=== PATIENT | female | born 1950 | race Caucasian/White ===

== ENCOUNTER 2021-10-20 10:32 | Emergency (ER) | payer MEDICARE, BC, SELFPAY ==
[2021-10-20 11:07] VITALS: BP 125/79; PULSE 56; RESP 16; TEMP 36.6; O2SAT 100; BMI 16.1
--- NOTE | 2021-10-20 12:18 | ED.FALL ---
HPI - Fall General Date Seen: 10/20/21 Chief Complaint: Fall/Minor Trauma Stated Complaint: Fell last night, cut right arm Time Seen by Provider: 10/20/21 11:50 Source: patient, family and RN notes reviewed Mode of arrival: ambulatory Limitations: no limitations History of Present Illness HPI Narrative: Patient is coming in at the urging of family members with an injury to her right forearm. She was in the dark last night and fell on a box. She tripped in the dark. She noted that the lesion with his bleeding again today on her forearm. She is unsure of her tetanus. She did not hit her head, no loss of consciousness, no neck or back pain, no difficulty breathing, no chest pain, no abdominal symptoms. Does not hurt to use her arms or walk on her legs. She just had a skin injury to the forearm. complaint: fall Onset (ago): day(s) Fall from: standing Fall witnessed: no Place fall occurred: home Loss of consciousness: No Prolonged down time: no Symptoms prior to fall: none Context: tripped/slipped (In the dark) Related Data Home Medications Medication Instructions Recorded Confirmed No Known Home Medications 10/20/21 10/20/21 Allergies Allergy/AdvReac Type Severity Reaction Status Date / Time Penicillins Allergy Mild Unknown Verified 10/20/21 11:15 prednisone Allergy Mild Unknown Verified 10/20/21 11:15 Sulfa (Sulfonamide Allergy Mild Unknown Verified 10/20/21 11:15 Antibiotics) Review of Systems Narrative: As per HPI, note nursing staff found her tetanus to be up to date with last dose in 2016 [facility] Social History Smoking Status: Former smoker Do you use any of these nicotine containing products: None Second hand tobacco smoke exposure: Yes How often do you have a drink containing alcohol: never How often do you have six or more drinks on one occasion: Never AUDIT-C Alcohol total score: 0 Non-prescribed substance use: denies use service: No Exam Const: Vital Signs, click to edit/add: Vital Signs - 24 hr 10/20/21 11:07 Temperature 97.8 F Pulse Rate [Right Pulse Oximeter] 56 L Respiratory Rate 16 Blood Pressure [Le ft Upper Arm] 125/79 Pulse Oximetry 100 Documenting provider has reviewed patient's vital signs: yes Common normals: no apparent distress, average body habitus, oriented x3, no limitations, healthy appearing and alert HENMT: Common normals: normocephalic, head/scalp atraumatic and hearing grossly normal bilaterally Head and scalp: normocephalic and atraumatic Eye: Common normals: PERRL, EOMs intact bilaterally, conjunctivae normal and no scleral icterus Conjunctiva: conjunctiva(e) normal Pupil: PERRL Neck & C-Spine: Common normals: full ROM, no lymphadenopathy, supple, no meningeal signs, no JVD and thyroid normal Thyroid: thyroid normal Resp: Common normals: normal respiratory effort, no retractions, no use of accessory muscles and clear to auscultation bilaterally Auscultation: clear to auscultation bilaterally Cardio: Common normals: no JVD, regular rate, regular rhythm, S1 normal heart sound, S2 normal heart sound, no gallops, no clicks and no murmurs Rate: regular rate Rhythm: regular rhythm Heart sounds: S1 normal and S2 normal Extremity: Other: Has a superficial skin there is no active bleeding. This is not something that is going to be amenable to suturing, it is a very superficial skin tear. Have reviewed with patient and her granddaughter that the area of skin that is there should be left as it can help in wound healing. There is no evidence of infection at this time but they are going to need to watch for that. I would recommend occlusive type dressings with Tegaderm or with something nonstick that can be changed daily. We did review that the Tegaderm can be left on for days at a time as long as there was no significant buildup of fluids or concern of infection. Nursing staff will be cleaning this and then applying bandage. Neuro: Common normals: oriented x3 Sensorium/orientation: alert Meningeal signs: no meningeal signs Course Vital Signs Vital signs: Initial Vital Signs Temperature 97.8 F 10/20/21 11:07 Temperature Source Temporal Artery Scan 10/20/21 11:07 Pulse Rate 56 L 10/20/21 11:07 Pulse Rhythm 10/20/21 11:07 Respiratory Rate 16 10/20/21 11:07 Blood Pressure 125/79 10/20/21 11:07 Blood Pressure Mean 94 10/20/21 11:07 Blood Pressure Position Sitting 10/20/21 11:07 Pulse Oximetry 100 10/20/21 11:07 Oxygen Delivery Method 10/20/21 11:07 Vital Signs Temperature 97.8 F 10/20/21 11:07 Pulse Rate 56 L 10/20/21 11:07 Respiratory Rate 16 10/20/21 11:07 Blood Pressure 125/79 10/20/21 11:07 Pulse Oximetry 100 10/20/21 11:07 Temperature 97.8 F 10/20/21 11:07 Pulse Rate 56 L 10/20/21 11:07 Respiratory Rate 16 10/20/21 11:07 Blood Pressure 125/79 10/20/21 11:07 Pulse Oximetry 100 10/20/21 11:07 Critical Care Time Critical Care Time Critical Care Time: No Discharge Plan Discharge Clinical Impression: Skin tear of forearm without complication Qualifiers: Encounter type: initial encounter Laterality: right Qualified Code(s): S51.811A - Laceration without foreign body of right forearm, initial encounter Patient Disposition: Home, Self-Care Condition: Stable Instructions: Skin Tear (ED) Additional Instructions: If using Tegaderm, can change this every few days up to a week in time depending on underlying fluid buildup or any concern for infection. Do not want to use Tegaderm dressings if there is infection. Otherwise, if using a non occlusive dressed seen, will want and nonstick bandage to be changed daily. If you do develop any concern of infection, please seek re-evaluation. You can always follow up in clinic if there is any concerns about this wound or if you are having difficulty with dressing choice. Activity Level: Activity as Tolerated Prescriptions: No Action No Known Home Medications 0RF Follow Up/Referrals: Ranjit Funes MD [Primary Care Provider] - Stand Alone Forms: [employer] Info Instructions
--- NOTE | 2021-10-20 12:30 | ED.NURSE ---
skin tear was cleansed with hibiclens and saline. wanted bacitracin and telfa. same applied. did get additional dressing supplies. wants to go home.
== END 2021-10-20 12:30 | disposition home or self-care (01) ==
PROVIDERS: Emergency Provider Family Medicine; PCP Family Medicine
DX: S51.811A Laceration without foreign body of right forearm, initial encounter (principal); W01.10XA Fall on same level from slipping, tripping and stumbling with subsequent striking against unspecified object, initial encounter
CPT/HCPCS: 99282

== ENCOUNTER 2022-11-15 17:10 | Emergency (ER) | payer MEDICARE, BC, SELFPAY ==
[2022-11-15 17:26] VITALS: BP 139/78; PULSE 72; RESP 18; TEMP 37.1; O2SAT 97; BMI 20.2
--- NOTE | 2022-11-15 18:35 | ED_ITS ---
HPI - Ear Problem General Time Seen by Provider: 18:35 Date Seen: 11/15/22 Chief complaint: Ear/Nose/Throat Problem Stated complaint: Foreign object R ear Time Seen by Provider: 11/15/22 18:18 Source: patient, RN notes reviewed and old records reviewed Mode of arrival: ambulatory Limitations: no limitations History of Present Illness HPI Narrative: 72-year-old female who comes in today with concern for foreign body in the right ear. She has an sensation of right ear pressure and fullness since yesterday, decreased hearing, no pain. Does not use Q-tips, no known foreign body. Related Data Previous Rx's Medication Instructions Recorded fluticasone propionate 50 1 spray intranasal DAILY PRN ear 11/15/22 mcg/actuation nasal fullness #16 grams spray,suspension (Flonase Allergy Relief) Allergies Allergy/AdvReac Type Severity Reaction Status Date / Time Penicillins Allergy Mild Unknown Verified 10/20/21 11:15 prednisone Allergy Mild Unknown Verified 10/20/21 11:15 Sulfa (Sulfonamide Allergy Mild Unknown Verified 10/20/21 11:15 Antibiotics) PFSH PFS Social History Smoking Status: Former smoker Do you use any of these nicotine containing products: None Second hand tobacco smoke exposure: Yes How often do you have a drink containing alcohol: never How often do you have six or more drinks on one occasion: Never AUDIT-C Alcohol total score: 0 Non-prescribed substance use: denies use service: No Exam Narrative: Exam Narrative: General: well nourished , NAD Head: Atraumatic and normocephalic ENT: External ears and external nose are normal. Trace wax on the floor of the left external auditory canal. Right external auditory canal obscured by dry yellow wax Eyes: Conjunctiva clear, pupils are equal reactive, external ocular motions are intact Neck: Full spontaneous range of motion of the neck Lungs: No respiratory distress Musculoskeletal: No tenderness or deformity Neurologic: No gross focal neurologic deficits Skin: No rashes Psych: Mood and affect are appropriate Const: Vital Signs, click to edit/add: Vital Signs - 24 hr 11/15/22 17:26 Temperature 98.8 F Pulse Rate [Pulse Oximeter] 72 Respiratory Rate 18 Blood Pressure [Ri ght Upper Arm] 139/78 Pulse Oximetry 97 Oxygen Delivery Me thod Room Air Course Course Hospital Course: Patient seen and examined, prior records reviewed. Patient presents with concern for foreign body in the right ear. On exam there is wax in the right ear but no insect or other foreign body seen. Will irrigate and re-examine. Reevaluation(s) Time of Reevaluation #1: 19:29 Reevaluation #1: Patient recheck, large amount of cerumen irrigated from the ear canal. Right tympanic membrane is red bulging but no redness. Patient will be started on Flonase, continue sinus rinses, stable for discharge. Vital Signs Vital signs: Initial Vital Signs Temperature 98.8 F 11/15/22 17:26 Temperature Source Temporal Artery Scan 11/15/22 17:26 Pulse Rate 72 11/15/22 17:26 Pulse Rhythm Regular 11/15/22 17:26 Respiratory Rate 18 11/15/22 17:26 Blood Pressure 139/78 11/15/22 17:26 Blood Pressure Mean 98 11/15/22 17:26 Blood Pressure Position Sitting 11/15/22 17:26 Pulse Oximetry 97 11/15/22 17:26 Oxygen Delivery Method Room Air 11/15/22 17:26 Vital Signs Temperature 98.8 F 11/15/22 17:26 Pulse Rate 72 11/15/22 17:26 Respiratory Rate 18 11/15/22 17:26 Blood Pressure 139/78 11/15/22 17:26 Pulse Oximetry 97 11/15/22 17:26 Oxygen Delivery Method Room Air 11/15/22 17:26 Temperature 98.8 F 11/15/22 17:26 Pulse Rate 72 11/15/22 17:26 Respiratory Rate 18 11/15/22 17:26 Blood Pressure 139/78 11/15/22 17:26 Pulse Oximetry 97 11/15/22 17:26 Oxygen Delivery Method Room Air 11/15/22 17:26 Discharge Plan Discharge Clinical Impression: Cerumen impaction, Acute serous otitis media Patient Disposition: Home, Self-Care Condition: Stable Instructions: Fluid In The Ear (Serous Otitis Media) (ED) Additional Instructions: Continue sinus rinses and use Flonase as prescribed Activity Level: No Restrictions Discharge Diet: Regular Prescriptions: New fluticasone propionate [Flonase Allergy Relief] 50 mcg/actuation spray,suspension 1 spray intranasal DAILY PRN (Reason: ear fullness) Qty: 16 2RF Rx Instructions: administer into each nostril Follow Up/Referrals: Ranjit Funes MD [Primary Care Provider] - Stand Alone Forms: [employer] [facility] Info Instructions
--- NOTE | 2022-11-15 19:24 | ED.NURSE ---
RIGHT ear irrigated with warm tap water. Irrigation performed for approximately 13 minutes with good results. Eardrum visible after irrigation. Dr. Kern notified.
--- NOTE | 2022-11-16 16:34 | ED.NURSE ---
patient called in concerned of Flonase prescription that has prednisone in which patient has an allergy to the causing swelling. Called to talk with pharmacy at [facility] for answers to the Flonase which is safe to take very small amount that would not be harmful to patient but patient should watch out fo signs of allergies, Patient agreed after talking and given information.
== END 2022-11-15 19:36 | disposition home or self-care (01) ==
PROVIDERS: Emergency Provider Family Medicine; PCP Family Medicine
DX: H65.01 Acute serous otitis media, right ear (principal); H61.21 Impacted cerumen, right ear
CPT/HCPCS: 69209; 99282; 99283

== ENCOUNTER 2023-10-11 06:01 | Day surgery (SDC) | payer MEDICARE, BC, SELFPAY ==
[2023-10-11] VITALS (14 sets, daily range): BP systolic 99–149; BP diastolic 63–95; PULSE 48–69; RESP 14–20; TEMP 36.3–36.6; O2SAT 94–98; BMI 21.9
--- OUTSIDE RECORDS SUMMARY | 2023-10-11 06:06 | XMS_ITS | Clinical Summary ---
Author Organization [facility] Address [place], [place] [address] Care Team Providers Care Transit Planning Director Name Role Phone Ranjit Funes MD Primary Care Provider [phone] Allergies Active Allergy Reactions Criticality Noted Date Comments Penicillins 07/05/2007 Family has allergy and she does not take this Prednisone Edema 04/29/2015 In legs mainly. Shellfish Containing Products Hives High 03/26/2015 Had shrimp since rash and tolerated well Sulfa (Sulfonamide Antibiotics) Diarrhea 10/26/2017 Medications No known medications Active Problems Problem Noted Date Diagnosed Date Dysuria 01/22/2016 Routine adult health maintenance 01/15/2016 Overview: Colonoscopy 12/2015 normal repeat in 10 years Beta thalassemia trait 06/03/2015 Overview: Diagnosed in 04/2015. This may have contributed to her anemia but should not cause a drop in Hemoglobin greater than 2. She refused iron studies. Anemia, unspecified 06/03/2015 Overview: Partly Beta thalassemia trait Allergic rhinitis, cause unspecified 07/05/2007 Osteoarthrosis, unspecified whether generalized or localized, unspecified site 07/04/2007 Overview: Hands only. No pain. Encounters Date Type Department Care Team Description 10/05/2023 4:15 PM CDT Office Visit [facility] [address] [place] [address] Zofia Quiroga MD Consult (Bilateral inguinal hernias) 10/05/2023 Travel 09/28/2023 3:35 PM CDT Office Visit [facility] [address] [place] [address] Ranjit Funes MD Preoperative Exam (Hernia surgery 10/05/2023) 09/28/2023 Travel 09/28/[address] [address] Ranjit Funes MD Questions (SURGEON/) 09/23/[address] [address] Sera Fiore MD schedule surgery 09/22/2023 3:30 PM CDT Ancillary Procedure [address] [address] 09/22/2023 2:30 PM CDT Ancillary Procedure [address] [address] 09/22/2023 1:30 PM CDT Office Visit [address] [address] Sera Fiore MD Consult (Left groin hernia referred by Dr. Funes) 09/22/2023 Travel 09/15/2023 4:05 PM CDT Office Visit [address] [address] Ranjit Funes MD Lump (Concerns with possible hernias, both left and right groin/ - left lump is larger than the right) 09/15/2023 Travel 09/03/[address] [address] Ranjit Funes MD Results (Lab results) 09/02/2023 2:15 PM CDT Orders Only [address] [address] Lab, [place] [facility] 09/02/2023 Travel 08/25/2023 Telephone [facility] [address] [place] [address] Ranjit Funes MD REQUEST FOR HEP C SCREENING ORDER 08/20/2023 11:20 AM CDT Office Visit [facility] [address] [place] [address] Ranjit Funes MD Medication Management (General check - go over labs) 08/20/2023 Travel 08/12/2023 9:30 AM CDT Orders Only [facility] [address] [place] [address] [facility], [place] 08/12/2023 Travel 07/23/2023 Telephone [facility] [address] [place] [address] Ranjit Funes MD Appointment (Questions if appt or other things due) from Last 3 Months Immunizations Name Administration Dates Next Due Rabavert 10/29/2017 Rabies Vaccine 10/26/2017,10/04/2015,09/27/2015 ,09/23/2015,09/20/2015 Td (Age >=7 Years) 06/10/2004 Tdap 06/24/2015 07/04/2015 Family History Medical History Relation Name Comments Other Daughter Crohn's colitis Heart Disease Father CHF late 70s; at 88 of renal failure Cancer Mother endometrial Diabetes Mother age 62 Hip fracture Mother of this at 72; she also had fecal impaction Kidney failure Mother of this at 72 (was on dialysis for 10 years) Cancer-breast No Family History Cancer-colon No Family History Cancer-prostate No Family History Relation Name Status Comments Daughter Father Mother Social History Tobacco Use Types Packs/Day Years Used Date Smoking Tobacco: Never Smokeless Tobacco: Never Tobacco Cessation:Counseling Given: Yes Alcohol Use Standard Drinks/Week Comments No 0 (1 standard drink = 0.6 oz pur e alcohol) PHQ-2 Answer Date Recorded PHQ-2 TOTAL SCORE 0 08/20/2023 Social Connections Answer Date Recorded Frequency of Communication with Friends and Fami ly 0 08/20/2023 Financial Resource Strain Answer Date R ecorded Difficulty of Paying Living Expenses 2 08/20/2023 Difficulty of Paying Living Expenses 1 08/20/2023 Food Insecurity Answer Date Recorded Worried About Running Out of Food in the Last Ye ar 1 08/20/2023 Transportation Needs Answer Date Record ed Lack of Transportation (Medical) 1 08/20/2023 Housing Stability Answer Date Recorded Unable to Pay for Housing in the Last Year 1 08/20/2023 Sex and Gender Information Value Date Recorded Sex Assigned at Not on file Gender Identity Not on file Sexual Orientation Not on file Obstetrics History Last Filed Vital Signs Vital Sign Reading Time Taken Comments Blood Pressure 133/82 10/05/2023 4:30 PM CDT Pulse 78 10/05/2023 4:30 PM CDT Temperature 36.9 ??C (98.4 ??F) 09/28/2023 4:05 PM CD T Respiratory Rate 16 12/06/2015 1:37 PM CDT Oxygen Saturation 99% 10/05/2023 4:30 PM CDT Inhaled Oxygen Concentration - - Weight 56 kg (123 lb 6.4 oz) 09/28/2023 4:05 PM CDT Height 161.5 cm (5' 3.58) 09/28/2023 4:05 PM CD T Body Mass Index 21.46 09/28/2023 4:05 PM CDT Plan of Treatment Upcoming Encounters Date Type Department Care Team (Late st Contact Info) Description 10/11/2023 9:00 AM CDT Office Visit [facility] [address] [place] [address] Zofia Quiroga MD [address] [place] [address] Health Maintenance Due Date Last Done Comments Zoster (shingles) series for age 50+ (1 of 2) 1998 DEXA/DXA scan for age 65+ 2013 Pneumococcal series for age 65+ (1 of 1 - PCV) 2013 COVID-19 vaccine series (3 - season) 2022 11/21/2020, 10/31/2020 Medicare Wellness for age 65+ 12/18/2022, 08/29/2018, 07/19/2017, Additional history exists Influenza for age 65+ 11/28/2023 Depression screening for age 12+ 08/19/2024 08/20/2023, 12/17/2021, 08/29/2018, Additional history exists BMI (ht and wt on same day) for age 18+ 09/27/2024 09/28/2023, 12/17/2021, 01/09/2019, Additional history exists Tetanus booster 06/23/2025 06/24/2015, 06/10/2004 Colonoscopy through age 75 01/14/202601/14, 01/15/2016, 01/15/2016, Additional history exists Lipids for age 45-75 08/11/2028 08/12/2023, 01/09/2019, 06/03/2015, Additional history exists Tdap Completed 06/24/2015 Hepatitis C screening for ag e 18-79 Completed 09/02/2023 Procedures Procedure Name Priority Date/Time Associated Diagnosis Comments CT PELVIS W STAT 09/22/2023 3:15 PM CDT Left groin hernia CREATININE,ISTAT Routine 09/22/2023 2:56 PM CDT Left groin hernia US ABDOMEN LIMITED HERNIA STAT 09/22/2023 2:20 PM CDT Left groin hernia ANTI HCV Routine 09/02/2023 2:01 PM CDT Need for hepatitis C screening test CWS PATH REVIEW HEMATOLOGY Routine 08/12/2023 9:23 AM CDT Beta thalassemia trait RED CELL MORPHOLOGY Routine 08/12/2023 9 :23 AM CDT Beta thalassemia trait PLATELET ESTIMATE Routine 08/12/2023 9:2 3 AM CDT Beta thalassemia trait MANUAL DIFFERENTIAL Routine 08/12/2023 9 :23 AM CDT Beta thalassemia trait CBC WITH AUTO DIFFERENTIAL Routine 08/12/2023 9:23 AM CDT Beta thalassemia trait HEMOGLOBIN A1C SCREENING Routine 08/12/2023 9:23 AM CDT Hyperglycemia CBC WITH AUTO DIFFERENTIAL Routine 08/12/2023 9:23 AM CDT Beta thalassemia trait LIPID PANEL W REFLEX MEASURED LDL Routine 08/12/2023 9:23 AM CDT Lipid screening COLONOSCOPY 01/15/2016 11:18 AM CDT from Last 3 Months or Most Recently Relevant to Health Maintenance Results * CT PELVIS W (09/22/2023 3:15 PM CDT) Anatomical Region Laterality Modality Pelvis, Abdomen, PROSTATE, BLADDER Computed Tomography 09/22/2023 3:40 PM CDT Addenda Addendum by Shorty Massey MD on 09/22/2023 3:54 PM CDT For Patients: ??As a result of the Cures Act, medical imaging exams and procedure reports are released immediately into your electronic medical record. ??You may view this report before your referring provider. ?? If you have questions, please contact your health care provider. INDICATION: Left groin hernia Soft tissue mass, groin, deep TECHNIQUE: CT of the abdomen and pelvis was obtained with 100 mL of Omnipaque 350 intravenous contrast. ?? Please note that all CT scans at this facility use dose modulation, iterative reconstruction, and/or weight-based dosing when appropriate to reduce radiation dose to as low as reasonably achievable. ?? COMPARISON: None. FINDINGS: Visualized liver and biliary tree/upper abdomen: Normal. Kidneys and ureters: Visualized portions without hydronephrosis or obstructing renal calculi. Gastrointestinal tract: Paucity of intra-abdominal fat slightly limits evaluation of the bowel. Small to moderate stool burden seen throughout the colon. No evidence of bowel obstruction. Fecalization of distal small bowel contents. Peritoneal cavity: Normal. Bladder: Normal. Pelvic organs: Likely atrophic uterus. Vasculature: Prominent pelvic vasculature. Mild arterial calcification. Lymph nodes: Normal. Abdominal wall: 2.3 x 2.1 centimeter rim enhancing right inguinal mass () with possible tail extending into the inguinal canal. Moderate fat containing left inguinal hernia with associated fat stranding. Musculoskeletal: Moderate degenerative changes of the visualized spine. Mild anterolisthesis of L3 on L4. Mild degenerative changes of the left greater than right hips. IMPRESSION: 1. Moderate fat containing LEFT inguinal hernia with associated fat stranding may represent incarceration/strangulation. 2. ?? 3.3 x 3.1 centimeter rim enhancing RIGHT inguinal mass with possible tail extending into the inguinal canal. This is favored to represent a right inguinal hernia with internal contents, which may represent complex fluid or possibly even a portion of herniated urinary bladder. A necrotic lymph node can not be excluded. Consider outpatient evaluation with ultrasound. 3. Paucity of intra-abdominal fat slightly limits evaluation of the bowel. Small to moderate stool burden seen throughout the colon. No evidence of bowel obstruction. Fecalization of distal small bowel contents. 4. Prominent pelvic vasculature may represent pelvic congestion syndrome. Please note that all CT scans at this facility use dose modulation, iterative reconstruction, and/or weight-based dosing when appropriate to reduce radiation dose to as low as reasonably achievable. Dictated by Srinivasan Massey MD @ 09/22/2023 3:40:22 PM (Electronically Signed) Impressions 09/22/2023 3:40 PM CDT 1. Moderate fat containing LEFT inguinal hernia with associated fat stranding may represent incarceration/strangulation. 2. ?? 3.3 x 3.1 centimeter rim enhancing RIGHT inguinal mass with possible tail extending into the inguinal canal. This is favored to represent a right inguinal hernia with internal contents, which may represent complex fluid or possibly even a portion of herniated urinary bladder. A necrotic lymph node can not be excluded. Consider outpatient evaluation with ultrasound. 3. Paucity of intra-abdominal fat slightly limits evaluation of the bowel. Small to moderate stool burden seen throughout the colon. No evidence of bowel obstruction. Fecalization of distal small bowel contents. 4. Prominent pelvic vasculature may represent pelvic congestion syndrome. Please note that all CT scans at this facility use dose modulation, iterative reconstruction, and/or weight-based dosing when appropriate to reduce radiation dose to as low as reasonably achievable. Dictated by Srinivasan Massey MD @ 09/22/2023 3:40:22 PM (Electronically Signed) Narrative 09/22/2023 3:40 PM CDT For Patients: ??As a result of the 21st Century Cures Act, medical imaging exams and procedure reports are released immediately into your electronic medical record. ??You may view this report before your referring provider. ??If you have questions, please contact your health care provider. INDICATION: Left groin hernia Soft tissue mass, groin, deep TECHNIQUE: CT of the abdomen and pelvis was obtained with 100 mL of Omnipaque 350 intravenous contrast. ?? Please note that all CT scans at this facility use dose modulation, iterative reconstruction, and/or weight-based dosing when appropriate to reduce radiation dose to as low as reasonably achievable. ?? COMPARISON: None. FINDINGS: Visualized liver and biliary tree/upper abdomen: Normal. Kidneys and ureters: Visualized portions without hydronephrosis or obstructing renal calculi. Gastrointestinal tract: Paucity of intra-abdominal fat slightly limits evaluation of the bowel. Small to moderate stool burden seen throughout the colon. No evidence of bowel obstruction. Fecalization of distal small bowel contents. Peritoneal cavity: Normal. Bladder: Normal. Pelvic organs: Likely atrophic uterus. Vasculature: Prominent pelvic vasculature. Mild arterial calcification. Lymph nodes: Normal. Abdominal wall: 2.3 x 2.1 centimeter rim enhancing right inguinal mass (/) with possible tail extending into the inguinal canal. Moderate fat containing left inguinal hernia with associated fat stranding. Musculoskeletal: Moderate degenerative changes of the visualized spine. Mild anterolisthesis of L3 on L4. Mild degenerative changes of the left greater than right hips. Procedure Note Shorty Massey MD - 09/22/2023 For Patients: As a result of the Century Cures Act, medical imagingexams and procedure reports are released immediately into your electronicmedical record. You may view this report before your referring provider.If you have questions, please contact your health care provider. INDICATION: Left groin hernia Soft tissue mass, groin, deep TECHNIQUE: CT of the abdomen and pelvis was obtained with 100 mL of Omnipaque 350intravenous contrast. Please note that all CT scans at this facility use dose modulation,iterative reconstruction, and/or weight-based dosing when appropriate toreduce radiation dose to as low as reasonably achievable. COMPARISON: None. FINDINGS: Visualized liver and biliary tree/upper abdomen: Normal. Kidneys and ureters: Visualized portions without hydronephrosis orobstructing renal calculi. Gastrointestinal tract: Paucity of intra-abdominal fat slightly limitsevaluation of the bowel. Small to moderate stool burden seen throughoutthe colon. No evidence of bowel obstruction. Fecalization of distal smallbowel contents. Peritoneal cavity: Normal. Bladder: Normal. Pelvic organs: Likely atrophic uterus. Vasculature: Prominent pelvic vasculature. Mild arterial calcification. Lymph nodes: Normal. Abdominal wall: 2.3 x 2.1 centimeter rim enhancing right inguinal mass() with possible tail extending into the inguinal canal. Moderate fat containing left inguinal hernia with associated fatstranding. Musculoskeletal: Moderate degenerative changes of the visualized spine.Mild anterolisthesis of L3 on L4. Mild degenerative changes of the left greater than right hips. IMPRESSION: 1. Moderate fat containing LEFT inguinal hernia with associated fatstranding may represent incarceration/strangulation. 2. 3.3 x 3.1 centimeter rim enhancing RIGHT inguinal mass with possibletail extending into the inguinal canal. This is favored to represent aright inguinal hernia with internal contents, which may represent complexfluid or possibly even a portion of herniated urinary bladder. A necroticlymph node can not be excluded. Consider outpatient evaluation withultrasound. 3. Paucity of intra-abdominal fat slightly limits evaluation of the bowel.Small to moderate stool burden seen throughout the colon. No evidence ofbowel obstruction. Fecalization of distal small bowel contents. 4. Prominent pelvic vasculature may represent pelvic congestionsyndrome. Please note that all CT scans at this facility use dose modulation,iterative reconstruction, and/or weight-based dosing when appropriate toreduce radiation dose to as low as reasonably achievable. Dictated by Srinivasan Massey MD @ 09/22/2023 3:40:22 PM (Electronically Signed) Sera Fiore MD CT * (ABNORMAL) CREATININE,ISTAT (09/22/2023 2:56 PM CDT) CREATININE, POCT 0.70 0.57 - 1.11 mg/dL 09/22/2023 2:59 PM CDT [facility] Comment:Caution: Patients ta eufemia Hydroxyurea have falsely increased iStat Creatinine results. Verify creatinine results ordering a Creatinine (51104.2) eGFR 90(L) >90 mL/min/1.7 3m2 09/22/2023 2:59 PM CDT [facility] Comment:As of 2021, eG FR is calculated by the CKD-EPI creatinine equation without race adjustment. eGFR can be influenced by muscle mass, exercise, and diet. The reported eGFR is an estimation only and is only applicable if the renal function is stable. Blood BLOOD SPECIMEN / Unknown 09/22/2023 2:56 PM CDT 09/22/2023 2:59 PM CDT Sera Fiore MD CHEMISTRY [facility] [address] [place] [address], * US ABDOMEN LIMITED HERNIA (09/22/2023 2:20 PM CDT) Anatomical Region Laterality Modality Ultrasound 09/22/2023 2:29 PM CDT Addenda Addendum by Berlin Encinas DO on 09/22/2023 3:54 PM CDT For Patients: ??As a result of the Cures Act, medical imaging exams and procedure reports are released immediately into your electronic medical record. ??You may view this report before your referring provider. ?? If you have questions, please contact your health care provider. Indication: Left groin hernia. Technique: Grayscale and color imaging of the left groin region. Comparison: None available. Findings: Multifocal rounded solid and fluid density foci are present in the left groin that are non reducible. Findings are concerning for bowel containing hernia, however, no well-defined peristalsing bowel is demonstrated. Soft tissues elsewhere as imaged are unremarkable. Impression: Findings concerning for non reducible complex left groin/inguinal hernia. However, no definite peristalsing bowel is demonstrated. Other etiologies are not entirely excluded. Follow-up CT of the pelvis may prove useful for further evaluation and prior to any planned intervention. Dictated by Berlin Encinas MD @ 09/22/2023 2:28:45 PM Dictated by: Berlin Encinas MD @ 09/22/2023 14:29:12 (Electronically Signed) Narrative 09/22/2023 2:29 PM CDT For Patients: ??As a result of the Cures Act, medical imaging exams and procedure reports are released immediately into your electronic medical record. ??You may view this report before your referring provider. ??If you have questions, please contact your health care provider. Indication: Left groin hernia. Technique: Grayscale and color imaging of the left groin region. Comparison: None available. Findings: Multifocal rounded solid and fluid density foci are present in the left groin that are non reducible. Findings are concerning for bowel containing hernia, however, no well-defined peristalsing bowel is demonstrated. Soft tissues elsewhere as imaged are unremarkable. Impression: Findings concerning for non reducible complex left groin/inguinal hernia. However, no definite peristalsing bowel is demonstrated. Other etiologies are not entirely excluded. Follow-up CT of the pelvis may prove useful for further evaluation and prior to any planned intervention. Dictated by Berlin Encinas MD @ 09/22/2023 2:28:45 PM Dictated by: Berlin Encinas MD @ 09/22/2023 14:29:12 (Electronically Signed) Procedure Note Berlin Encinas, - 09/22/2023 For Patients: As a result of the Cures Act, medical imagingexams and procedure reports are released immediately into your electronicmedical record. You may view this report before your referring provider.If you have questions, please contact your health care provider. Indication: Left groin hernia. Technique: Grayscale and color imaging of the left groin region. Comparison: None available. Findings: Multifocal rounded solid and fluid density foci are present in the leftgroin that are non reducible. Findings are concerning for bowel containinghernia, however, no well-defined peristalsing bowel is demonstrated. Softtissues elsewhere as imaged are unremarkable. Impression: Findings concerning for non reducible complex left groin/inguinal hernia.However, no definite peristalsing bowel is demonstrated. Other etiologiesare not entirely excluded. Follow-up CT of the pelvis may prove useful forfurther evaluation and prior to any planned intervention. Dictated by Berlin Encinas MD @ 09/22/2023 2:28:45 PM Dictated by: Berlin Encinas MD @ 09/22/2023 14:29:12 (Electronically Signed) Sera Fiore MD US * ANTI HCV (09/02/2023 2:01 PM CDT) Pathologist [facility] HEPATITIS C ANTIBODY Non-Reacti ve Non-React cory 09/02/2023 11:40 PM CDT [facility] Comment:Please note, per www .CDC.gov: If a patient is known to be at high risk of HCV infection, or is symptomatic, and the physician's suspicion of HCV infection is high, HCV RNA testing is often employed and is of diagnostic value, even after an initial negative anti-HCV test result. Blood BLOOD SPECIMEN / Unknown Venipuncture / Unknown 09/02/2023 2:01 PM CDT 09/02/2023 2:04 PM CDT Ranjit Funes MD SEND OUTS Performing Organization Address City/[facility]/ZIP Co de Phone Number [facility] [address] [place] [address], * CWS PATH REVIEW HEMATOLOGY (08/12/2023 9:23 AM CDT) [facility] PATH COMMENT Reviewed by BB on 08/14/2023 08/14/2023 1:09 PM CDT [facility] Blood BLOOD SPECIMEN / Unknown Venipuncture / Unknown 08/12/2023 9:23 AM CDT 08/12/2023 9:23 AM CDT Ranjit Funes MD LABORATORY Performing Organization Address City/[facility]/ZIP Co de Phone Number [facility] [address] [place] [address], [place] * (ABNORMAL) CBC WITH AUTO DIFFERENTIAL (08/12/2023 9:23 AM CDT) [facility] WHITE BLOOD COUNT 5.9 4.5 - 11.0 thou/cu mm 08/12/2023 10:21 AM CDT [facility] RED BLOOD COUNT 5.53(H) 4.00 - 5.20 mil/cu mm 08/12/2023 10:21 AM CDT [facility] HEMOGLOBIN 11.4(L) 12.0 - 16.0 g/dL 08/12/2023 10:21 AM CDT [facility] HEMATOCRIT 33.9 33.0 - 51.0 % 08/12/2023 10:21 AM CDT [facility] MCV 61(L) 80 - 100 fL 08/12/2023 10:21 AM CDT [facility] MCH 20.6(L) 26.0 - 34.0 pg 08/12/2023 10:21 AM CDT [facility] MCHC 33.6 32.0 - 36.0 g/dL 08/12/2023 10:21 AM CDT [facility] RDW 19.1(H) 11.5 - 15.5 % 08/12/2023 10:21 AM CDT [facility] PLATELET COUNT 284 140 - 440 thou/cu mm 08/12/2023 10:21 AM CDT [facility] MPV 10.0 6.5 - 11.0 fL 08/12/2023 10:21 AM CDT [facility] Blood BLOOD SPECIMEN / Unknown Venipuncture / Unknown 08/12/2023 9:23 AM CDT 08/12/2023 9:23 AM CDT Ranjit Funes MD HEMATOLOGY [facility] [address] [place] [address], * HEMOGLOBIN A1C SCREENING (08/12/2023 9:23 AM CDT) HEMOGLOBIN A1C SCREENING 5.5 <=6.4 % 08/12/2023 4:57 PM CDT [facility] Blood BLOOD SPECIMEN / Unknown Venipuncture / Unknown 08/12/2023 9:23 AM CDT 08/12/2023 9:23 AM CDT Narrative [facility] - 08/12/2023 4:57 PM CDT ? (<5.7%) ?Normal ? (5.7% to 6.4%) ? Indicates prediabetes ? (>=6.5%) ? Confirms diabetes Falsely low levels may be seen with: Recent Transfusion, Recent Significant Blood Loss, Hemolytic Diseases, or Falsely elevated levels may be seen with: Untreated Anemias, Splenectomy Ranjit Funes MD CHEMISTRY Performing Organization Address City/[facility]/ZIP Co de Phone Number [facility] [address] [place] [address], * (ABNORMAL) RED CELL MORPHOLOGY (08/12/2023 9:23 AM CDT) ELLIPTOCYTES Many 08/12/2023 10:21 AM CDT [facility] POLYCHROMASIA Slight 08/12/2023 10:21 AM CDT [facility] SPHEROCYTES Few 08/12/2023 10:21 AM CDT [facility] TARGET CELLS Few 08/12/2023 10:21 AM CDT [facility] TEARDROP CELLS Moderate 08/12/2023 10:21 AM CDT [facility] RBC COMMENT Present(A) RBC morphology appears normal, RBC morphology within normal limits for newborns. 08/12/2023 10:21 AM CDT [facility] Blood BLOOD SPECIMEN / Unknown Venipuncture / Unknown 08/12/2023 9:23 AM CDT 08/12/2023 9:23 AM CDT Ranjit Funes MD HEMATOLOGY Performing Organization Address City/[facility]/ZIP Co de Phone Number [facility] [address] [place] [address], [place] [phone] * PLATELET ESTIMATE (08/12/2023 9:23 AM CDT) PLATELET ESTIMATE Adequate Adequate, No estimate 08/12/2023 10:21 AM CDT [facility] Blood BLOOD SPECIMEN / Unknown Venipuncture / Unknown 08/12/2023 9:23 AM CDT 08/12/2023 9:23 AM CDT Ranjit Funes MD HEMATOLOGY [facility] [address] [place] [address], * (ABNORMAL) LIPID PANEL W REFLEX MEASURED LDL (08/12/2023 9:23 AM CDT) CHOLESTEROL,TOTAL 220(H) 100 - 199 mg/dL 08/12/2023 6:18 PM CDT [facility] Comment: Cholesterol, Total Reference Ranges Desirable <200 mg/dL Borderline 200-239 mg/dL High >=240 mg/dL TRIGLYCERIDES 64 <150 mg/dL 08/12/2023 6:18 PM CDT [facility] HDL CHOLESTEROL 108 >40 mg/dL 6:18 PM CDT [facility] NON-HDL CHOLESTEROL 112 <145 mg/dl 08/12/2023 6:18 PM CDT [facility] CHOL/HDL RATIO 2.04 <4.50 08/12/2023 6:18 PM CDT [facility] LDL CHOLESTEROL 99 <=130 mg/dL 08/12/2023 6:18 PM CDT [facility] VLDL CHOLESTEROL 13 <=30 mg/dL 08/12/2023 6:18 PM CDT [facility] PROVIDER ORDERED STATUS RANDOM 08/12/2023 6:18 PM CDT [facility] Blood BLOOD SPECIMEN / Unknown Venipuncture / Unknown 08/12/2023 9:23 AM CDT 08/12/2023 9:23 AM CDT Ranjit Funes MD CHEMISTRY [facility] [address] [place] [address], [place] * MANUAL DIFFERENTIAL (08/12/2023 9:23 AM CDT) % NEUTROPHILS 61.0 % 08/12/2023 10:21 AM CDT [facility] % LYMPHOCYTES 31.0 % 08/12/2023 10:21 AM CDT [facility] % MONOCYTES 6.0 % 08/12/2023 10:21 AM CDT [facility] % EOSINOPHILS 0.0 % 08/12/2023 10:21 AM CDT [facility] % BASOPHILS 2.0 % 08/12/2023 10:21 AM CDT [facility] NEUTROPHILS ABSOLUTE 3.6 1.7 - 7.0 thou/cu mm 08/12/2023 10:21 AM CDT [facility] LYMPHOCYTES ABSOLUTE 1.8 0.9 - 2.9 thou/cu mm 08/12/2023 10:21 AM CDT [facility] MONOCYTES ABSOLUTE 0.4 <0.9 thou/cu mm 08/12/2023 10:21 AM CDT [facility] EOSINOPHILS ABSOLUTE 0.0 <0.5 thou/cu mm 08/12/2023 10:21 AM CDT [facility] BASOPHILS ABSOLUTE 0.1 <0.3 thou/cu mm 08/12/2023 10:21 AM CDT [facility] Blood BLOOD SPECIMEN / Unknown Venipuncture / Unknown 08/12/2023 9:23 AM CDT 08/12/2023 9:23 AM CDT Ranjit Funes MD HEMATOLOGY Performing Organization Address City/State/[facility] Co ne Phone Number [facility] [address] [place] [address], * COLONOSCOPY (01/15/2016 11:18 AM CDT) 01/15/2016 11:1 8 AM CDT Narrative 01/15/2016 11:18 AM CDT Patient Name: Katiuska Hughes ?Procedure Date: 01/15/2016 ? Gender: Female ? Date of : 1950 Admit Type: Outpatient ? Procedure: ?Colonoscopy Proceduralist: ?Alek Frausto MD Indications/Pre-Op Diagnosis: Screening for colorectal malignant neoplasm, ?Last colonoscopy 10 years ago Medications: ?Fentanyl 100 micrograms IV, Midazolam 2 mg IV, ?The level of sedation administered was moderate ? Procedure Description: ? The patient had risks, benefits and alternatives explained to and gave ? informed consent. The patient had a stable cardiopulmonary status and ? judged an adequate candidate for conscious sedation. ? The F-Q290AL [id number] was passed through the anus and advanced to the ? cecum, identified by appendiceal orifice and ileocecal valve. The ? colonoscopy was technically difficult and complex due to significant ? looping. Successful completion of the procedure was aided by changing ? the patient to a supine position. The patient tolerated the procedure ? fairly well. The quality of the bowel preparation was excellent. ? Complications: ?No immediate complications. Estimated Blood Loss & Specimen: ? Estimated blood loss: none. Specimen collected - None ? Findings: ? The entire examined colon appeared normal on direct and retroflexion ? views. ? Impressions/Post-Op Diagnosis: ? - The entire examined colon is normal on direct and retroflexion views. ? - No specimens collected. ? Recommendation: ? - Patient has a contact number available for emergencies. The signs and ? symptoms of potential delayed complications were discussed with the ? patient. Return to normal activities tomorrow. Written discharge ? instructions were provided to the patient. ? - Resume previous diet. ? - Continue present medications. ? - Repeat colonoscopy in 10 years for surveillance. ? Alek Frausto MD 01/15/2016 12:41:30 PM This report has been signed electronically. Note Initiated On: 01/15/2016 11:18 AM Scope In: 12:01:37 PM Scope Withdrawal Time 0 hours 9 minutes 20 seconds Scope Out: 12:28:20 PM Procedure Note Alek Frausto MD - 01/15/2016 12:41 PM CDT Patient Name: Katiuska Hughes Procedure Date: 01/15/2016 Gender: Female Date of : 1950 Admit Type: Outpatient Procedure: Colonoscopy Proceduralist: Alek Frausto MD Indications/Pre-Op Diagnosis: Screening for colorectal malignant neoplasm, Last colonoscopy 10 years ago Medications: Fentanyl 100 micrograms IV, Midazolam 2 mgIV, The level of sedation administered wasmoderate Procedure Description: The patient had risks, benefits and alternatives explained to andgave informed consent. The patient had a stable cardiopulmonary status and judged an adequate candidate for conscious sedation. The PCF-Q290AL [id number] was passed through the anus and advanced tothe cecum, identified by appendiceal orifice and ileocecal valve. The colonoscopy was technically difficult and complex due to significant looping. Successful completion of the procedure was aided by changing the patient to a supine position. The patient tolerated the procedure fairly well. The quality of the bowel preparation was excellent. Complications: No immediate complications. Estimated Blood Loss & Specimen: Estimated blood loss: none. Specimen collected - None Findings: The entire examined colon appeared normal on direct and retroflexion views. Impressions/Post-Op Diagnosis: - The entire examined colon is normal on direct and retroflexionviews. - No specimens collected. Recommendation: - Patient has a contact number available for emergencies. The signsand symptoms of potential delayed complications were discussed with the patient. Return to normal activities tomorrow. Written discharge instructions were provided to the patient. - Resume previous diet. - Continue present medications. - Repeat colonoscopy in 10 years for surveillance. Alek Frausto MD 01/15/2016 12:41:30 PM This report has been signed electronically. Note Initiated On: 01/15/2016 11:18 AM Scope In: 12:01:37 PM Scope Withdrawal Time 0 hours 9 minutes 20 seconds Scope Out: 12:28:20 PM Alek Frausto MD PROCEDURE ORD from Last 3 Months or Most Recently Relevant to Health Maintenance Advance Directives Documents on File Type Date Recorded Patient System Controller Expl anation Healthcare Directive 04/17/2016 12:10 PM Gayle ESTRELLA, 12/22/2015 Healthcare Directive 05/17/2015 3:42 PM DONELL ESTRELLA, 04/29/15 ONLY ONE PAGE DOCUMENT RECEIVED Care Teams Transit Planning Director Relationship Specialty Start Date End Date Ranjit Funes MD [address] [place] [address] PCP - General 07/05/07
[2023-10-11] MEDS: LACTATED RINGERS 1000 ML 1,000 ML 100 ML IV ×2 (06:50→09:14)
[2023-10-11] MEDS: SODIUM CHLORIDE 0.9 % (FLUSH) 10 ML SYRINGE IVF (06:50)
--- NOTE | 2023-10-11 07:37 | W.PM.H&PU_ITS ---
History & Physical Update History & Physical Update H&P Reviewed and patient assessed: No changes noted H&P Updates: Ivory is here today for bilateral laparoscopic hernia repair. She had had some anxiety about anesthesia, however she is amenable today to proceed with laparoscopic repair with general anesthesia. She is a Religious and does refuse blood transfusion in the event of life-threatening hemorrhage.
--- NOTE | 2023-10-11 07:40 | P.GSOP_ITS ---
Operative Note Date of procedure: 10/11/23 Pre-op diagnosis: Bilateral incarcerated inguinal hernias Post-op diagnosis: Same Type of Procedure: Laparoscopic repair bilateral incarcerated inguinal hernias Indications: The patient is a 73-year-old female who noted a left groin bulge. Workup revealed bilateral inguinal hernias. These were not reducible. After discussion of options, she elected to proceed with bilateral repair given that they were incarcerated she is minimally symptomatic. I recommended laparoscopic repair and patient was amenable after discussion of risks and benefits of general versus spinal versus local anesthesia as well as laparoscopic versus open repair. Procedure Description: After discussing the risks and benefits of the procedure, the patient signed informed consent.? The operative site was marked and the patient was brought to the operating room and placed on the operating table in supine position.? Care was taken to pad the patient's pressure points.?? The patient was then [intubated/given sedation] by anesthesia.?? The operative site was then prepped and draped in the usual sterile fashion.? A time-out was then performed. A curvilinear incision was made below the umbilicus. Dissection was carried down to subcutaneous tissue until the anterior rectus fascia was encountered. This was incised off the midline on the left. The rectus muscle fibers were then retracted exposing the posterior fascia. A port with a dissecting balloon was then introduced into the pre-preperitoneal space. The patient's infraumbilical length was actually quite short and the balloon did not it all the way into her abdomen. I was however able to bluntly dissect the rectus fibers away from the peritoneum. I placed a 10 mm port and its insufflated the space. There was significant space for me to place my working ports. Dissection began on the left side. Jean's ligament and the pubic bone were exposed medially. Following this, dissection was carried out laterally. A direct hernia was noted. This was noted to be incarcerated. I carefully dissected around the hernia opening, dividing the fibers adherent hernia sac to the abdominal wall. The hernia sac did tear, exposing the peritoneal cavity. I noted that the hernia contained a piece of incarcerated omentum. I was able to reduce the omentum gently. Then, I dissected around the hernia sac circumferentially bluntly and continued with a combination of pressure anteriorly and pulling. Using a scissor, I, divided some of the fibers adhering the hernia sac to the abdominal wall. With continued pressure I was eventually able to reduce the hernia completely along with the incarcerated preperitoneal herniated fat. Once this was done, I examined the space. The round ligament was identified and ligated with clips and divided. The peritoneum then fell easily back. I obtained a piece of m edium Bard 3DMax mesh and secured this in place with 2 clips medially on the pubic tubercle and 1 clip laterally with care to avoid the epigastric vessels. Using A Vlock suture I did close the peritoneal opening that was created with reduction of the hernia sac. Prior to doing this I evacuated any pneumoperitoneum with a soft catheter. I then turned my attention to the right side. Similarly there was a direct hernia which was incarcerated. I dissected out Jean's ligament medially and took my dissection laterally as well to create a preperitoneal space. Then I turned my attention to reducing the hernia. Similarly this was very adherent and incarcerated. I was able to reduce this without tearing the peritoneum however. Once the hernia was reduced, I again ligated with clips and divided the round ligament. I then placed a piece of medium Bard 3DMax mesh in the space and secured this with 2 clips on the pubic tubercle and 1 clip laterally, with care to avoid the epigastric vessels and stay above the inguinal ligament. Once this was completed the hernia sacs were placed on top of the mesh and the preperitoneal space desufflated under direct vision to ensure the mesh laid f lat. 10 mL of 0.5% Marcaine were instilled into the preperitoneal space through a port. The ports were removed. The fascia from the infraumbilical port was closed with 0 Vicryl. The skin incisions were closed with absorbable subcuticular suture. Sterile dressings were then applied. The scrotum was examined to ensure that both testicles were down. Instrument sponge and needle counts were correct at the end of the case. The patient was then woken and transported to the recovery area in stable condition. ? The patient tolerated the procedure well. Findings: Bilateral incarcerated inguinal hernias, the left hernia being larger and containing incarcerated omentum as well as preperitoneal fat. Implants: Bard 3DMax mesh, bilateral Anesthesia: GETA Surgeon: Zofia Quiroga MD Estimated blood loss (mL): 5 Condition: stable Disposition: PACU
[2023-10-11] MEDS: CLINDAMYCIN 900 MG/50 ML-D5W IVPB (07:55)
[2023-10-11] MEDS: BUPIVACAINE 0.25% 30 ML INJECTION (09:25)
--- NOTE | 2023-10-11 09:49 | W.ANESCHARGE ---
Anesthesia Charges Start Date/Time Anesthesia Start Date: 10/11/23 Anesthesia Start Time: 07:44 Stop Date/Time Anesthesia Stop Date: 10/11/23 Anesthesia Stop Time: 09:49
[2023-10-11] MEDS: ONDANSETRON 2 MG/ML inj 4 MG IVP (10:01)
--- NOTE | 2023-10-11 10:23 | SUR.PHASEI ---
patient met discharge criteria per anesthesia
[2023-10-11] MEDS: METOCLOPRAMIDE HCL 5 MG/ML INJ 10 MG IVP (10:29)
== END 2023-10-11 12:23 | disposition home or self-care (01) ==
PROVIDERS: Surgery; PCP Family Medicine; Visit Provider Surgery
PROC: (CPT 49650; principal; 2023-10-11 07:30)
DX: K40.00 Bilateral inguinal hernia, with obstruction, without gangrene, not specified as recurrent (principal)
CPT/HCPCS: 49650; 830; C1781; J0330; J0665; J0736; J1100; J1885; J2405; J2704; J2710; J2765; J3010; J7120

== ENCOUNTER 2023-10-15 01:51 | Emergency (ER) | payer MEDICARE, BC, SELFPAY ==
[2023-10-15 02:00] VITALS: BP 155/93; PULSE 81; RESP 18; TEMP 36.5; O2SAT 98; BMI 21.3
--- NOTE | 2023-10-15 02:35 | ED_ITS ---
HPI - Animal Bite General Date Seen: 10/15/23 Chief Complaint: Animal Bite Stated Complaint: Bat bite Time Seen by Provider: 10/15/23 02:13 Source: patient Mode of arrival: ambulatory Limitations: no limitations History of Present Illness HPI narrative: Patient is a 73-year-old female who was awoken from sleep by a noise in her bathroom. She went in to use the bathroom and found a bat. She knocked to the ground and through a rug over the top of it. She believes that at one point it may have bitten her on the right side of her scalp. No bleeding. She was not able to see any puncture wound. She had rabies vaccine in 2016. They were able to recover the body of the bat but unfortunately smashed it with a board. Related Data Previous Rx's ?Medication ?Instructions ?Recorded fluticasone propionate 50 1 spray intranasal DAILY PRN ear 11/15/22 mcg/actuation nasal fullness #16 grams spray,suspension (Flonase Allergy Relief) hydrocodone 5 mg-acetaminophen 325 1 tab PO Q6H PRN Pain #15 tabs 10/11/23 mg tablet Allergies Allergy/AdvReac Type Severity Reaction Status Date / Time Penicillins Allergy Mild Unknown Verified 10/20/21 11:15 prednisone Allergy Mild Unknown Verified 10/20/21 11:15 Sulfa (Sulfonamide Allergy Mild Unknown Verified 10/20/21 11:15 Antibiotics) shrimp Allergy Hives Verified 10/04/23 08:01 Review of Systems Narrative: Review of systems is outlined above otherwise noted to be negative. [facility] Medical History (Updated 10/15/23 @ 02:34 by Ren Cordova MD) Dysuria ?R30.0 - Dysuria (ICD-10) Anemia ?D64.9 - Anemia, unspecified (ICD-10) Osteoarthritis ?M19.90 - Unspecified osteoarthritis, unspecified site (ICD-10) Social History Smoking Status: Former smoker Do you use any of these nicotine containing products: None Second hand tobacco smoke exposure: Yes How often do you have a drink containing alcohol: never How often do you have six or more drinks on one occasion: Never AUDIT-C Alcohol total score: 0 Non-prescribed substance use: denies use Caffeine: Yes service: No Exam Narrative: Exam Narrative: Vitals noted. Lungs are clear. Heart is regular rate rhythm without murmur. Careful examination of her entire scalp fails to show any puncture wounds or dried blood. No regional adenopathy. Const: Vital Signs, click to edit/add: Vital Signs - 24 hr 10/15/23 02:00 Temperature 97.7 F Pulse Rate [Pulse Oximeter] 81 Respiratory Rate 18 Blood Pressure [Ri ght Upper Arm] 155/93 H Pulse Oximetry 98 Oxygen Delivery Me thod Room Air Course Course ED Course: Patient seen and examined. 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 They suggested rabies vaccine today and again in three days. They did not recommend immunoglobulin. Vital Signs Vital signs: Initial Vital Signs Temperature 97.7 F 10/15/23 02:00 Temperature Source Temporal Artery Scan 10/15/23 02:00 Pulse Rate 81 10/15/23 02:00 Pulse Rhythm Regular 10/15/23 02:00 Respiratory Rate 18 10/15/23 02:00 Blood Pressure 155/93 H 10/15/23 02:00 Blood Pressure Mean 113 H 10/15/23 02:00 Blood Pressure Position Sitting 10/15/23 02:00 Pulse Oximetry 98 10/15/23 02:00 Oxygen Delivery Method Room Air 10/15/23 02:00 Vital Signs Temperature 97.7 F 10/15/23 02:00 Pulse Rate 81 10/15/23 02:00 Respiratory Rate 18 10/15/23 02:00 Blood Pressure 155/93 H 10/15/23 02:00 Pulse Oximetry 98 10/15/23 02:00 Oxygen Delivery Method Room Air 10/15/23 02:00 Temperature 97.7 F 10/15/23 02:00 Pulse Rate 81 10/15/23 02:00 Respiratory Rate 18 10/15/23 02:00 Blood Pressure 155/93 H 10/15/23 02:00 Pulse Oximetry 98 10/15/23 02:00 Oxygen Delivery Method Room Air 10/15/23 02:00 Discharge Plan Discharge Clinical Impression: Bat bite wound Patient Disposition: Home, Self-Care Condition: Stable Additional Instructions: Apparently the [facility] will not test the bat as 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 Follow up on 10/18/2023 for 2nd rabies vaccine. Prescriptions: No Action hydrocodone-acetaminophen 5-325 mg Tablet 1 tab PO Q6H PRN (Reason: Pain) Qty: 15 0RF fluticasone propionate [Flonase Allergy Relief] 50 mcg/actuation spray,suspension 1 spray intranasal DAILY PRN (Reason: ear fullness) Qty: 16 2RF Rx Instructions: administer into each nostril Follow Up/Referrals: Ranjit Funes MD [Primary Care Provider] - Stand Alone Forms: [employer] Info Instructions
--- OUTSIDE RECORDS SUMMARY | 2023-10-15 02:43 | XMS_ITS | Clinical Summary ---
Author Organization [facility] Address [place], [place] [address] Care Team Providers Care Allergist/Immunologist Name Role Phone Ranjit Funes MD Primary Care Provider [phone] Allergies Active Allergy Reactions Criticality Noted Date [...] Encounters Date Type Department Care Team Description 10/11/2023 9:00 AM CDT Office Visit [facility] [address] [facility] [place] [address] Zofia Quiroga MD 10/11/2023 Orders Only [facility] Scanner 1 scan: (1-Ord) [facility], LAPAROSCOPIC REPAIR BILAT INCARCERATED INGUINAL HERNIAS, 10/11/2023 10/05/2023 4:15 PM CDT Office Visit [facility] [address] [place] [address] Zofia Quiroga MD Consult (Bilateral inguinal hernias) 10/05/2023 Travel 09/28/2023 3:35 PM CDT Office Visit [facility] [address] [place] [address] Ranjit Funes MD Preoperative Exam (Hernia surgery 10/05/2023) 09/28/2023 Travel 09/28/2023 Telephone [facility] [address] [place] [address] Ranjit Funes MD Questions (SURGEON/) 09/23/2023 Telephone [facility] [address] [place] [address] Sera Fiore MD schedule surgery 09/22/2023 3:30 PM CDT Ancillary Procedure [facility] [address] [place] [address] 09/22/2023 2:30 PM CDT Ancillary Procedure [facility] [address] [place] [address] 09/22/2023 1:30 PM CDT Office Visit [facility] [address] [place] [address] Sera Fiore MD Consult (Left groin hernia referred by Dr. Funes) 09/22/2023 Travel 09/15/2023 4:05 PM CDT Office Visit [facility] [address] [place] [address] Ranjit Funes MD Lump (Concerns with possible hernias, both left and right groin/ - left lump is larger than the right) 09/15/2023 Travel 09/03/2023 Telephone [facility] [address] [place] [address] Ranjit Funes MD Results (Lab results) 09/02/2023 2:15 PM CDT Orders Only [facility] [place] [address] [address] Lab, [place] [facility] 09/02/2023 Travel 08/25/2023 Telephone [facility] [address] [place] [address] Ranjit Funes MD REQUEST FOR HEP C SCREENING ORDER 08/20/2023 11:20 AM CDT Office Visit [facility] [place] [address] Ranjit Funes MD Medication Management (General check - go over labs) 08/20/2023 Travel 08/12/2023 9:30 AM CDT Orders Only [facility] [place] [address] [address] Lab, [place] [facility] 08/12/2023 Travel 07/23/2023 Telephone [facility] [address] Ranjit Funes MD Appointment (Questions if appt [...] Care Team (Late st Contact Info) Description 10/26/2023 1:15 PM CDT Office Visit [facility] [address] [place] [address] Zofia Quiroga MD [address] [place] [address] Health Maintenance Due Date Last Done Comments Zoster (shingles) series for age 50+ (1 of 2) 1998 DEXA/DXA scan for age 65+ 2013 Pneumococcal series for age 65+ (1 of 1 - PCV) 2013 COVID-19 vaccine series (3 - 2022- season) 2022 11/21/2020, 10/31/2020 Medicare Wellness for [...] Procedure Name Priority Date/Time Associated Diagnosis Comments SCAN-OPERATIVE/PROCED URE REPORT 10/11/2023 12:[address] PELVIS W STAT 09/22/2023 3:15 PM [...] Recently Relevant to Health Maintenance Results * SCAN-OPERATIVE/PROCEDURE REPORT (10/11/2023 12:00 AM CDT) Scanner OTHER * CT PELVIS W (09/22/2023 3:15 PM CDT) Anatomical Region Laterality Modality Pelvis, Abdomen, PROSTATE, BLADDER Computed Tomography 09/22/2023 3:40 PM CDT Addenda Addendum by Shorty Massey MD on 09/22/2023 3:54 PM CDT For Patients: ??As a result of the Century Cures Act, medical imaging exams and [...] 2.1 centimeter rim enhancing right inguinal mass (2/85) with possible tail extending into the inguinal [...] x 2.1 centimeter rim enhancing right inguinal mass(2/85) with possible tail extending into the inguinal [...] - 1.11 mg/dL 09/22/2023 2:59 PM CDT [facility] Comment:Caution: Patients ta eufemia Hydroxyurea have falsely increased iStat Creatinine results. Verify creatinine results ordering a Creatinine (46209.2) eGFR 90(L) >90 mL/min/1.7 3m2 09/22/2023 2:59 PM CDT [facility] Comment:As of 2021, eG FR is calculated by the CKD-EPI creatinine equation without race adjustment. eGFR can be influenced by muscle mass, exercise, and diet. The reported eGFR is an estimation only and is only applicable if the renal function is stable. Blood BLOOD SPECIMEN / Unknown 09/22/2023 2:56 PM CDT 09/22/2023 2:59 PM CDT Sera Fiore MD CHEMISTRY [facility] [address] [place] [address], * US ABDOMEN LIMITED HERNIA (09/22/2023 2:20 [...] 09/22/2023 14:29:12 (Electronically Signed) Procedure Note [place] Encinas DO - 09/22/2023 For Patients: As a result [...] * ANTI HCV (09/02/2023 2:01 PM CDT) [facility] HEPATITIS C ANTIBODY Non-Reacti ve Non-React cory 09/02/2023 11:40 PM CDT [facility] Comment:Please note, per www .CDC.gov: [...] PM CDT Ranjit Funes MD SEND OUTS [facility] LABORATORY [address] [place] [address], [place] * CWS PATH REVIEW HEMATOLOGY (08/12/2023 9:23 AM CDT) Pathologist [facility] PATH COMMENT Reviewed by BB on 08/14/2023 08/14/2023 1:09 PM CDT [facility] TR[facility] Blood BLOOD SPECIMEN / Unknown Venipuncture / Unknown 08/12/2023 9:23 AM CDT 08/12/2023 9:23 AM CDT Ranjit Funes MD LABORATORY [facility] LABORATORY-CENTRAL LABORATORY [address] [place] [address], [place] * (ABNORMAL) CBC WITH AUTO DIFFERENTIAL (08/12/2023 9:23 AM CDT) WHITE BLOOD COUNT 5.9 4.5 - 11.0 thou/cu mm 08/12/2023 10:21 AM CDT [facility] RED BLOOD COUNT 5.53(H) 4.00 - 5.20 mil/cu mm 08/12/2023 10:21 AM CDT [facility] HEMOGLOBIN 11.4(L) 12.0 - 16.0 g/dL 08/12/2023 10:21 AM CDT [facility] HEMATOCRIT 33.9 33.0 - 51.0 % 08/12/2023 10:21 AM CDT [facility] MCV 61(L) 80 - 100 fL 08/12/2023 10:21 AM CDT [facility] MCH 20.6(L) 26.0 - 34.0 pg 08/12/2023 10:21 AM CDT [facility] MCHC 33.6 32.0 - 36.0 g/dL 08/12/2023 10:21 AM CDT [facility] RDW 19.1(H) 11.5 - 15.5 % 08/12/2023 10:21 AM CDT [facility] PLATELET COUNT 284 140 - 440 thou/cu mm 08/12/2023 10:21 AM CDT [facility] MPV 10.0 6.5 - 11.0 fL 08/12/2023 10:21 AM CDT [facility] Blood BLOOD SPECIMEN / Unknown Venipuncture / Unknown 08/12/2023 9:23 AM CDT 08/12/2023 9:23 AM CDT Ranjit Funes MD HEMATOLOGY [facility] [address] [place] [address], [place] [phone] * HEMOGLOBIN A1C SCREENING (08/12/2023 9:23 AM CDT) Pathologist [facility] HEMOGLOBIN A1C SCREENING 5.5 <=6.4 % 08/12/2023 4:57 PM CDT [facility] Blood BLOOD SPECIMEN / Unknown Venipuncture / Unknown 08/12/2023 9:23 AM CDT 08/12/2023 9:23 AM CDT [facility] LABORATORY - 08/12/2023 4:57 PM CDT ? (<5.7%) ?Normal ? (5.7% to 6.4%) ? Indicates prediabetes ? (>=6.5%) ? Confirms diabetes Falsely low levels may be seen with: Recent Transfusion, Recent Significant Blood Loss, Hemolytic Diseases, or Falsely elevated levels may be seen with: Untreated Anemias, Splenectomy Ranjit Funes MD CHEMISTRY [facility] LABORATORY [address] [place] [address], * (ABNORMAL) RED CELL MORPHOLOGY (08/12/2023 9:23 AM CDT) [facility] ELLIPTOCYTES Many 08/12/2023 10:21 AM CDT [facility] POLYCHROMASIA Slight 08/12/2023 10:21 AM CDT [facility] SPHEROCYTES Few 08/12/2023 10:21 AM CDT [facility] TARGET CELLS Few 08/12/2023 10:21 AM CDT [facility] TEARDROP CELLS Moderate 08/12/2023 10:21 AM CDT [facility] RBC COMMENT Present(A) RBC morphology appears normal, RBC morphology within normal limits for newborns. 08/12/2023 10:21 AM CDT [facility] Blood BLOOD SPECIMEN / Unknown Venipuncture / Unknown 08/12/2023 9:23 AM CDT 08/12/2023 9:23 AM CDT Ranjit Funes MD HEMATOLOGY [facility] [address] [place] [address], * PLATELET ESTIMATE (08/12/2023 9:23 AM CDT) PLATELET ESTIMATE Adequate Adequate, No estimate 08/12/2023 10:21 AM CDT [facility] Blood BLOOD SPECIMEN / Unknown Venipuncture / Unknown 08/12/2023 9:23 AM CDT 08/12/2023 9:23 AM CDT Ranjit Funes MD HEMATOLOGY Performing Organization Address City/[facility]/ZIP Co de Phone Number [facility] [address] [place] [address], [place] [phone] * (ABNORMAL) LIPID PANEL W REFLEX MEASURED LDL (08/12/2023 9:23 AM CDT) CHOLESTEROL,TOTAL 220(H) 100 - 199 mg/dL 08/12/2023 6:18 PM CDT [facility] LABORATORY-[facility] TR[facility] LABORATORY Comment: Cholesterol, Total Reference Ranges Desirable <200 mg/dL Borderline 200-239 mg/dL High >=240 mg/dL TRIGLYCERIDES 64 <150 mg/dL 08/12/2023 6:18 PM CDT [facility]-[place] [facility] HDL CHOLESTEROL 108 >40 mg/dL 6:18 PM CDT [facility] [facility] NON-HDL CHOLESTEROL 112 <145 mg/dl 08/12/2023 6:18 PM CDT [facility] [facility] CHOL/HDL RATIO 2.04 <4.50 08/12/2023 6:18 PM CDT [facility] LDL CHOLESTEROL 99 <=130 mg/dL 08/12/2023 6:18 PM CDT [facility] [facility] VLDL CHOLESTEROL 13 <=30 mg/dL 08/12/2023 6:18 PM CDT [facility] PROVIDER ORDERED STATUS RANDOM 08/12/2023 6:18 PM CDT [facility] LAB[facility]AT[facility] TR[facility] Blood BLOOD SPECIMEN / Unknown Venipuncture / Unknown 08/12/2023 9:23 AM CDT 08/12/2023 9:23 AM CDT Ranjit Funes MD CHEMISTRY [facility] LABORATORY-CENTRAL LABORATORY [address] [place] [id number], * MANUAL DIFFERENTIAL (08/12/2023 9:23 AM CDT) % NEUTROPHILS 61.0 % 08/12/2023 10:21 AM CDT [facility] % LYMPHOCYTES 31.0 % 08/12/2023 10:21 AM CDT [facility] % MONOCYTES 6.0 % 08/12/2023 10:21 AM CDT [facility] % EOSINOPHILS 0.0 % 08/12/2023 10:21 AM CDT [facility] % BASOPHILS 2.0 % 08/12/2023 10:21 AM CDT [facility] NEUTROPHILS ABSOLUTE 3.6 1.7 - 7.0 thou/cu mm 08/12/2023 10:21 AM CDT [facility] LYMPHOCYTES ABSOLUTE 1.8 0.9 - 2.9 thou/cu mm 08/12/2023 10:21 AM CDT [facility] MONOCYTES ABSOLUTE 0.4 <0.9 thou/cu mm 08/12/2023 10:21 AM CDT [facility] EOSINOPHILS ABSOLUTE 0.0 <0.5 thou/cu mm 08/12/2023 10:21 AM CDT [facility] BASOPHILS ABSOLUTE 0.1 <0.3 thou/cu mm 08/12/2023 10:21 AM CDT [facility] Blood BLOOD SPECIMEN / Unknown Venipuncture / Unknown 08/12/2023 9:23 AM CDT 08/12/2023 9:23 AM CDT Ranjit Funes MD HEMATOLOGY [facility] [address] [place] [address], * COLONOSCOPY (01/15/2016 11:18 AM CDT) 01/15/2016 [...] adequate candidate for conscious sedation. ? The PCF-[id number] [id number] was passed through the anus and advanced [...] adequate candidate for conscious sedation. The PCF-Q290AL [id number] was passed through the anus and advanced [...] Documents on File Type Date Recorded Patient Awning Spreader Expl anation Healthcare Directive 04/17/2016 12:10 PM Gayle ESTRELLA, 12/22/2015 Healthcare Directive 05/17/2015 3:42 PM DONELL ESTRELLA, 04/29/15 ONLY ONE PAGE DOCUMENT RECEIVED Care Teams Allergist/Immunologist Relationship Specialty Start Date End Date [place] [address] PCP - General 07/05/07
--- NOTE | 2023-10-15 03:27 | PC.NURSE ---
Spoke with someone at the [place] [facility] re: bat bite/exposure. Since pt has already been through bat bite/exposure prophylaxis before they recommend the vaccines only. Vaccine on day 0 and day 3. And NO immunoglobulin. Also gave pt instructions on what to do with bat if they would like to take it to [facility] for testing.
== END 2023-10-15 03:53 | disposition home or self-care (01) ==
LOC: ED 02:37
PROVIDERS: Emergency Provider Family Medicine; PCP Family Medicine
DX: Z20.3 Contact with and (suspected) exposure to rabies (principal)
CPT/HCPCS: 90675; 96372; 99282

== ENCOUNTER 2023-10-15 19:10 | Emergency (ER) | payer MEDICARE, BC, SELFPAY ==
[2023-10-15 19:29] VITALS: BP 163/88; PULSE 74; RESP 20; TEMP 36.8; O2SAT 95; BMI 20.9
--- NOTE | 2023-10-15 19:33 | ED.ANIMALBIT ---
HPI - Animal Bite General Time Seen by Provider: 19:33 Date Seen: 10/15/23 Chief Complaint: Animal Bite Stated Complaint: Concerns over bat bite Time Seen by Provider: 10/15/23 19:14 Source: patient, RN notes reviewed and old records reviewed Mode of arrival: ambulatory Limitations: no limitations History of Present Illness HPI narrative: This patient is a 73-year-old female coming in with concern of not getting rabies immune globulin yesterday. She had her 3rd bat encounter yesterday, the [place] department of [facility] was contacted and she received an updated rabies vaccine. The triage note, note from yesterday was reviewed. She is concerned about dying from rabies. We did discuss that with her 1st bat exposure, she did get the rabies immune globulin and completed the full rabies series. She had a subsequent encounter and got updated rabies vaccine. She did receive an updated dose of rabies vaccine yesterday and is advised to come on day 3 for the 2nd updated vaccine. The bat is unavailable to be tested. We have discussed the rationale behind not doing rabies immune globulin in somebody that is already vaccinated. Did review on up-to-date and this is standard care in the medical literature. We reviewed that she has previously been vaccinated and would expect her body to a mount an immune response from the previous vaccination, thus, not requiring the immune globulin. Also reassured her that the incidence of rabies in bats is not high but if we cannot test the bat, there is no way to tell her if it is a possible carrier of rabies. Thus, she needs to proceed with getting her 2nd updated vaccine on day 3 and she will be sufficiently treated for rabies prophylaxis from a bat exposure. Her tetanus is up-to-date in 2016, when she last had rabies vaccines. complaint: possible animal exposure Related Data Patient tetanus UTD: Yes Previous Rx's ?Medication ?Instructions ?Recorded fluticasone propionate 50 1 spray intranasal DAILY PRN ear 11/15/22 mcg/actuation nasal fullness #16 grams spray,suspension (Flonase Allergy Relief) hydrocodone 5 mg-acetaminophen 325 1 tab PO Q6H PRN Pain #15 tabs 10/11/23 mg tablet Allergies Allergy/AdvReac Type Severity Reaction Status Date / Time Penicillins Allergy Mild Unknown Verified 10/15/23 19:28 prednisone Allergy Mild Unknown Verified 10/15/23 19:28 Sulfa (Sulfonamide Allergy Mild Unknown Verified 10/15/23 19:28 Antibiotics) shrimp Allergy Hives Verified 10/15/23 19:28 [facility] Medical History (Updated 10/15/23 @ 19:42 by Sveta Travis MD) Dysuria ?R30.0 - Dysuria (ICD-10) Anemia ?D64.9 - Anemia, unspecified (ICD-10) Osteoarthritis ?M19.90 - Unspecified osteoarthritis, unspecified site (ICD-10) Social History Smoking Status: Former smoker Do you use any of these nicotine containing products: None Second hand tobacco smoke exposure: Yes How often do you have a drink containing alcohol: never How often do you have six or more drinks on one occasion: Never AUDIT-C Alcohol total score: 0 Non-prescribed substance use: denies use Caffeine: Yes service: No Exam Narrative: Exam Narrative: No examination done, patient consult only. Const: Vital Signs, click to edit/add: Vital Signs - 24 hr 10/15/23 19:29 Temperature 98.3 F Pulse Rate [Pulse Oximeter] 74 Respiratory Rate 20 Blood Pressure [Ri ght Upper Arm] 163/88 H Pulse Oximetry 95 Oxygen Delivery Me thod Room Air Course Vital Signs Vital signs: Initial Vital Signs Temperature 98.3 F 10/15/23 19:29 Temperature Source Temporal Artery Scan 10/15/23 19:29 Pulse Rate 74 10/15/23 19:29 Pulse Rhythm Regular 10/15/23 19:29 Pulse Strength 3+ Normal 10/15/23 19:29 Respiratory Rate 20 10/15/23 19:29 Blood Pressure 163/88 H 10/15/23 19:29 Blood Pressure Mean 113 H 10/15/23 19:29 Blood Pressure Position Sitting 10/15/23 19:29 Pulse Oximetry 95 10/15/23 19:29 Oxygen Delivery Method Room Air 10/15/23 19:29 Vital Signs Temperature 98.3 F 10/15/23 19:29 Pulse Rate 74 10/15/23 19:29 Respiratory Rate 20 10/15/23 19:29 Blood Pressure 163/88 H 10/15/23 19:29 Pulse Oximetry 95 10/15/23 19:29 Oxygen Delivery Method Room Air 07/19/24 19:29 Temperature 98.3 F 10/15/23 19:29 Pulse Rate 74 10/15/23 19:29 Respiratory Rate 20 10/15/23 19:29 Blood Pressure 163/88 H 10/15/23 19:29 Pulse Oximetry 95 10/15/23 19:29 Oxygen Delivery Method Room Air 10/15/23 19:29 Discharge Plan Discharge Clinical Impression: Bat bite wound Patient Disposition: Home, Self-Care Condition: Stable Instructions: Animal Bite (ED) Additional Instructions: The literature is very definite that you do not need rabies immune globulin with previous immunization. The medical literature supports this approach and is exactly what the [place] department of Health advised overnight. You need to return on day 3 to get your follow-up rabies vaccine which will be sufficient post exposure prophylaxis to her most current bat exposure. Activity Level: Activity as Tolerated Discharge Diet: Regular Prescriptions: No Action hydrocodone-acetaminophen 5-325 mg Tablet 1 tab PO Q6H PRN (Reason: Pain) Qty: 15 0RF fluticasone propionate [Flonase Allergy Relief] 50 mcg/actuation spray,suspension 1 spray intranasal DAILY PRN (Reason: ear fullness) Qty: 16 2RF Rx Instructions: administer into each nostril Follow Up/Referrals: Ranjit Funes MD [Primary Care Provider] - Stand Alone Forms: [employer] Info Instructions
--- OUTSIDE RECORDS SUMMARY | 2023-10-15 19:46 | XMS_ITS | Clinical Summary ---
Author Organization [facility] s [facility] Address [place], [place] [address] Care Team Providers Care Mammal Control Agent Name Role Phone Ranjit Funes MD Primary Care Provider [phone]- [phone] Allergies Active Allergy Reactions Criticality Noted Date [...] Description 10/11/2023 9:00 AM CDT Office Visit [facility] [address] [facility] [place] [address] Zofia Quiroga MD 10/11/2023 Orders Only [facility] Scanner 1 scan: (1-Ord) [facility], LAPAROSCOPIC REPAIR BILAT INCARCERATED INGUINAL HERNIAS, 10/11/2023 10/05/2023 4:15 PM CDT Office Visit [facility] [address] [place] [address] Zofia Quiroga MD Consult (Bilateral inguinal hernias) 10/05/2023 Travel 09/28/2023 3:35 PM CDT Office Visit [facility] [address] [place] [address] Ranjit Funes MD Preoperative Exam (Hernia surgery 10/05/2023) 09/28/2023 Travel 09/28/2023 Telephone [facility] [address] [place] [address] Ranjit Funes MD Questions (SURGEON/) 09/23/2023 Telephone [facility] [address] [place] [address] Sera Fiore MD schedule surgery 09/22/2023 3:30 PM CDT Ancillary Procedure [facility] [address] [place] [address] 09/22/2023 2:30 PM CDT Ancillary Procedure [facility] [address] [place] [address] 09/22/2023 1:30 PM CDT Office Visit [facility] [address] [place] [address] Sera Fiore MD Consult (Left groin hernia referred by Dr. Funes) 09/22/2023 Travel 09/15/2023 4:05 PM CDT Office Visit [facility] [address] [place] [address] Ranjit Funes MD Lump (Concerns with possible hernias, both left and right groin/ - left lump is larger than the right) 09/15/2023 Travel 09/03/2023 Telephone [facility] [address] [place] [address] Ranjit Funes MD Results (Lab results) 09/02/2023 2:15 PM CDT Orders Only [facility] [place] [address] Lab, [place] [facility] 09/02/2023 Travel 08/25/2023 Telephone [facility] [address] [place] [address] Ranjit Funes MD REQUEST FOR HEP C SCREENING ORDER 08/20/2023 11:20 AM CDT Office Visit [facility] [place] [address] [address] [address] Ranjit Funes MD Medication Management (General check - go over labs) 08/20/2023 Travel 08/12/2023 9:30 AM CDT Orders Only [facility] [place] [address] [address] Lab, [place] [facility] 08/12/2023 Travel 07/23/2023 Telephone [facility] [address] Ranjit Funes MD Appointment (Questions if appt [...] Description 10/26/2023 1:15 PM CDT Office Visit [facility] [address] [place] [address] Zofia Quiroga MD [address] [place] [address] Health Maintenance Due Date Last Done Comments [...] - 1.11 mg/dL 09/22/2023 2:59 PM CDT [facility] Comment:Caution: Patients ta eufemia Hydroxyurea have falsely increased iStat Creatinine results. Verify creatinine results ordering a Creatinine (74235.2) eGFR 90(L) >90 mL/min/1.7 3m2 09/22/2023 2:59 PM CDT [facility] Comment:As of 2021, eG FR is calculated by the CKD-EPI creatinine equation without race adjustment. eGFR can be influenced by muscle mass, exercise, and diet. The reported eGFR is an estimation only and is only applicable if the renal function is stable. Blood BLOOD SPECIMEN / Unknown 09/22/2023 2:56 PM CDT 09/22/2023 2:59 PM CDT Sera Fiore MD CHEMISTRY [facility] [address] [place] [address], * [place] ABDOMEN LIMITED HERNIA (09/22/2023 2:20 [...] * ANTI HCV (09/02/2023 2:01 PM CDT) [facility] HEPATITIS C ANTIBODY Non-Reacti ve Non-React cory 09/02/2023 11:40 PM CDT [facility] Comment:Please note, per www .CDC.gov: [...] PM CDT Ranjit Funes MD SEND OUTS [facility] [address] [place] [address], [place] * CWS PATH REVIEW HEMATOLOGY (08/12/2023 9:23 AM CDT) Pathologist [facility] PATH COMMENT Reviewed by BB on 08/14/2023 08/14/2023 1:09 PM CDT [facility] TR[facility] Blood BLOOD SPECIMEN / Unknown Venipuncture / Unknown 08/12/2023 9:23 AM CDT 08/12/2023 9:23 AM CDT Ranjit Funes MD LABORATORY [facility] LABORATORY-CENTRAL LABORATORY [address] [place] [address], [place] * (ABNORMAL) CBC WITH AUTO DIFFERENTIAL (08/12/2023 9:23 AM CDT) WHITE BLOOD COUNT 5.9 4.5 - 11.0 thou/cu mm 08/12/2023 10:21 AM CDT [facility] RED BLOOD COUNT 5.53(H) 4.00 - 5.20 mil/cu mm 08/12/2023 10:21 AM CDT [facility] HEMOGLOBIN 11.4(L) 12.0 - 16.0 g/dL 08/12/2023 10:21 AM CDT [facility] HEMATOCRIT 33.9 33.0 - 51.0 % 08/12/2023 10:21 AM CDT [facility] MCV 61(L) 80 - 100 fL 08/12/2023 10:21 AM CDT [facility] MCH 20.6(L) 26.0 - 34.0 pg 08/12/2023 10:21 AM CDT [facility] MCHC 33.6 32.0 - 36.0 g/dL 08/12/2023 10:21 AM CDT [facility] RDW 19.1(H) 11.5 - 15.5 % 08/12/2023 10:21 AM CDT [facility] PLATELET COUNT 284 140 - 440 thou/cu mm 08/12/2023 10:21 AM CDT [facility] MPV 10.0 6.5 - 11.0 fL 08/12/2023 10:21 AM CDT [facility] Blood BLOOD SPECIMEN / Unknown Venipuncture / Unknown 08/12/2023 9:23 AM CDT 08/12/2023 9:23 AM CDT Ranjit Funes MD HEMATOLOGY [facility] [address] [place] [address], [place] [phone] * HEMOGLOBIN A1C SCREENING (08/12/2023 9:23 AM CDT) Pathologist [facility] HEMOGLOBIN A1C SCREENING 5.5 <=6.4 % 08/12/2023 4:57 PM CDT [facility] Blood BLOOD SPECIMEN / Unknown Venipuncture / Unknown 08/12/2023 9:23 AM CDT 08/12/2023 9:23 AM CDT [facility] LABORATORY - 08/12/2023 4:57 PM CDT ? (<5.7%) ?Normal ? (5.7% to 6.4%) ? Indicates prediabetes ? (>=6.5%) ? Confirms diabetes Falsely low levels may be seen with: Recent Transfusion, Recent Significant Blood Loss, Hemolytic Diseases, or Falsely elevated levels may be seen with: Untreated Anemias, Splenectomy Ranjit Funes MD CHEMISTRY [facility] [address] [place] [address], * (ABNORMAL) RED CELL MORPHOLOGY (08/12/2023 9:23 AM CDT) [facility] ELLIPTOCYTES Many 08/12/2023 10:21 AM CDT [facility] POLYCHROMASIA Slight 08/12/2023 10:21 AM CDT [facility] SPHEROCYTES Few 08/12/2023 10:21 AM CDT [facility] TARGET CELLS Few 08/12/2023 10:21 AM CDT [facility] TEARDROP CELLS Moderate 08/12/2023 10:21 AM CDT [facility] RBC COMMENT Present(A) RBC morphology appears normal, RBC morphology within normal limits for newborns. 08/12/2023 10:21 AM CDT [facility] Blood BLOOD SPECIMEN / Unknown Venipuncture / Unknown 08/12/2023 9:23 AM CDT 08/12/2023 9:23 AM CDT Ranjit Funes MD HEMATOLOGY [facility] [address] [place] [address], * PLATELET ESTIMATE (08/12/2023 9:23 AM CDT) PLATELET ESTIMATE Adequate Adequate, No estimate 08/12/2023 10:21 AM CDT [facility] Blood BLOOD SPECIMEN / Unknown Venipuncture / Unknown 08/12/2023 9:23 AM CDT 08/12/2023 9:23 AM CDT Ranjit Funes MD HEMATOLOGY Performing Organization Address City/[facility]/ZIP Co de Phone Number [facility] [address] [place] [address], [place] [phone] * (ABNORMAL) LIPID PANEL W REFLEX MEASURED LDL (08/12/2023 9:23 AM CDT) CHOLESTEROL,TOTAL 220(H) 100 - 199 mg/dL 08/12/2023 6:18 PM CDT [facility] LABORATORY-[facility] TRAL LABORATORY Comment: Cholesterol, Total Reference Ranges Desirable <200 mg/dL Borderline 200-239 mg/dL High >=240 mg/dL TRIGLYCERIDES 64 <150 mg/dL 08/12/2023 6:18 PM CDT [facility] HDL CHOLESTEROL 108 >40 mg/dL 6:18 PM CDT [facility] NON-HDL CHOLESTEROL 112 <145 mg/dl 08/12/2023 6:18 PM CDT [facility] [facility] CHOL/HDL RATIO 2.04 <4.50 08/12/2023 6:18 PM CDT [facility] LABORATORY-[facility] TRAL LAB[facility] LDL CHOLESTEROL 99 <=130 mg/dL 08/12/2023 6:18 PM CDT [facility] [facility] VLDL CHOLESTEROL 13 <=30 mg/dL 08/12/2023 6:[address] [facility] PROVIDER ORDERED STATUS RANDOM 08/12/2023 6:18 PM CDT [facility] LAB[facility] TRAL LAB[facility] Blood BLOOD SPECIMEN / Unknown Venipuncture / Unknown 08/12/2023 9:23 AM CDT 08/12/2023 9:23 AM CDT Ranjit Funes MD CHEMISTRY [facility] LABORATORY-CENTRAL LABORATORY [address] [place] [id number], * MANUAL DIFFERENTIAL (08/12/2023 9:23 AM CDT) % NEUTROPHILS 61.0 % 08/12/2023 10:21 AM CDT [facility] % LYMPHOCYTES 31.0 % 08/12/2023 10:21 AM CDT [facility] % MONOCYTES 6.0 % 08/12/2023 10:21 AM CDT [facility] % EOSINOPHILS 0.0 % 08/12/2023 10:21 AM CDT [facility] % BASOPHILS 2.0 % 08/12/2023 10:21 AM CDT [facility] NEUTROPHILS ABSOLUTE 3.6 1.7 - 7.0 thou/cu mm 08/12/2023 10:21 AM CDT [facility] LYMPHOCYTES ABSOLUTE 1.8 0.9 - 2.9 thou/cu mm 08/12/2023 10:21 AM CDT [facility] MONOCYTES ABSOLUTE 0.4 <0.9 thou/cu mm 08/12/2023 10:21 AM CDT [facility] EOSINOPHILS ABSOLUTE 0.0 <0.5 thou/cu mm 08/12/2023 10:21 AM CDT [facility] BASOPHILS ABSOLUTE 0.1 <0.3 thou/cu mm 08/12/2023 10:21 AM CDT [facility] Blood BLOOD SPECIMEN / Unknown Venipuncture / Unknown 08/12/2023 9:23 AM CDT 08/12/2023 9:23 AM CDT Ranjit Funes MD HEMATOLOGY [facility] [address] [place] [address], * COLONOSCOPY (01/15/2016 11:18 AM CDT) 01/15/2016 [...] candidate for conscious sedation. ? The PCF-Q290AL [id number] was passed through the anus and advanced [...] adequate candidate for conscious sedation. The PCF-Q290AL [id number] was passed through the anus and advanced [...] Documents on File Type Date Recorded Patient Replacer Expl anation Healthcare Directive 04/17/2016 12:10 PM Gayle ESTRELLA, 12/22/2015 Healthcare Directive 05/17/2015 3:42 PM DONELL ESTRELLA, 04/29/15 ONLY ONE PAGE DOCUMENT RECEIVED Care Teams Mammal Control Agent Relationship Specialty Start Date End Date [place] [address] [address] PCP - General 07/05/07
== END 2023-10-15 19:49 | disposition home or self-care (01) ==
LOC: ED 19:44
PROVIDERS: Emergency Provider Family Medicine; PCP Family Medicine
DX: Z20.3 Contact with and (suspected) exposure to rabies (principal)
CPT/HCPCS: 99282

== ENCOUNTER 2023-10-18 03:17 | Outpatient (CLI) | payer MEDICARE, BC, SELFPAY ==
--- OUTSIDE RECORDS SUMMARY | 2023-10-18 03:23 | XMS_ITS | Clinical Summary ---
Author Organization [facility] Address [place], [place] [address] Care Team Providers Care Billboard Poster Name Role Phone Ranjit Funes MD Primary Care Provider +1- [phone] Allergies Active Allergy Reactions Criticality Noted Date [...] Description 10/11/2023 9:00 AM CDT Office Visit [facility] [address] [facility] [place] [address] Zofia Quiroga MD 10/11/2023 Orders Only [facility] Scanner 1 scan: (1-Ord) [facility], LAPAROSCOPIC REPAIR BILAT INCARCERATED INGUINAL HERNIAS, 10/11/2023 10/05/2023 4:15 PM CDT Office Visit [facility] [address] [place] [address] Zofia Quiroga MD Consult (Bilateral inguinal hernias) 10/05/2023 Travel 09/28/2023 3:35 PM CDT Office Visit [facility] [address] [place] [address] Ranjit Funes MD Preoperative Exam (Hernia surgery 10/05/2023) 09/28/2023 Travel 09/28/2023 Telephone [facility] [address] [place] [address] Ranjit Funes MD Questions (SURGEON/) 09/23/2023 Telephone [facility] [address] [place] [address] Sera Fiore MD schedule surgery 09/22/2023 3:30 PM CDT Ancillary Procedure [facility] [address] [place] [address] 09/22/2023 2:30 PM CDT Ancillary Procedure [facility] [address] [place] [address] 09/22/2023 1:30 PM CDT Office Visit [facility] [address] [place] [address] Sera Fiore MD Consult (Left groin hernia referred by Dr. Funes) 09/22/2023 Travel 09/15/2023 4:05 PM CDT Office Visit [facility] [address] [place] [address] Ranjit Funes MD Lump (Concerns with possible hernias, both left and right groin/ - left lump is larger than the right) 09/15/2023 Travel 09/03/2023 Telephone [facility] [address] [place] [address] Ranjit Funes MD Results (Lab results) 09/02/2023 2:15 PM CDT Orders Only [facility] [place] [address] [address] Lab, [place] [facility] 09/02/2023 Travel 08/25/2023 Telephone [facility] [address] [place] [address] Ranjit Funes MD REQUEST FOR HEP C SCREENING ORDER 08/20/2023 11:20 AM CDT Office Visit [facility] [place] [address] [address] [address] Ranjit Funes MD Medication Management (General check - go over labs) 08/20/2023 Travel 08/12/2023 9:30 AM CDT Orders Only [facility] [place] [address] [address] [address] Lab, [place] [facility] 08/12/2023 Travel 07/23/2023 Telephone [facility] [address] Ranjit Funes MD Appointment (Questions if appt [...] Description 10/26/2023 1:15 PM CDT Office Visit [facility] [address] [place] [address] Zofia Quiroga MD [address] [place] [address] Health Maintenance Due Date Last Done Comments [...] - 1.11 mg/dL 09/22/2023 2:59 PM CDT [facility] Comment:Caution: Patients ta eufemia Hydroxyurea have falsely increased iStat Creatinine results. Verify creatinine results ordering a Creatinine (47728.2) eGFR 90(L) >90 mL/min/1.7 3m2 09/22/2023 2:59 PM CDT [facility] Comment:As of 2021, eG FR is calculated by the CKD-EPI creatinine equation without race adjustment. eGFR can be influenced by muscle mass, exercise, and diet. The reported eGFR is an estimation only and is only applicable if the renal function is stable. Blood BLOOD SPECIMEN / Unknown 09/22/2023 2:56 PM CDT 09/22/2023 2:59 PM CDT Sera Fiore MD CHEMISTRY [facility] [address] [place] [address], * [place] ABDOMEN LIMITED HERNIA (09/22/2023 2:20 [...] * ANTI HCV (09/02/2023 2:01 PM CDT) [facility] HEPATITIS C ANTIBODY Non-Reacti ve Non-React cory 09/02/2023 11:40 PM CDT [facility] Comment:Please note, per www [...] PM CDT Ranjit Funes MD SEND OUTS [facility] [address] [place] [address], [place] * CWS PATH REVIEW HEMATOLOGY (08/12/2023 9:23 AM CDT) Pathologist [facility] PATH COMMENT Reviewed by BB on 08/14/2023 08/14/2023 1:09 PM CDT [facility] TRAL LABORATORY Blood BLOOD SPECIMEN / Unknown Venipuncture / Unknown 08/12/2023 9:23 AM CDT 08/12/2023 9:23 AM CDT Ranjit Funes MD LABORATORY [facility] LABORATORY-CENTRAL LABORATORY [address] [place] [address], [place] * (ABNORMAL) CBC WITH AUTO DIFFERENTIAL (08/12/2023 9:23 AM CDT) WHITE BLOOD COUNT 5.9 4.5 - 11.0 thou/cu mm 08/12/2023 10:21 AM CDT [facility] RED BLOOD COUNT 5.53(H) 4.00 - 5.20 mil/cu mm 08/12/2023 10:21 AM CDT [facility] HEMOGLOBIN 11.4(L) 12.0 - 16.0 g/dL 08/12/2023 10:21 AM CDT [facility] HEMATOCRIT 33.9 33.0 - 51.0 % 08/12/2023 10:21 AM CDT [facility] MCV 61(L) 80 - 100 fL 08/12/2023 10:21 AM CDT [facility] MCH 20.6(L) 26.0 - 34.0 pg 08/12/2023 10:21 AM CDT [facility] MCHC 33.6 32.0 - 36.0 g/dL 08/12/2023 10:21 AM CDT [facility] RDW 19.1(H) 11.5 - 15.5 % 08/12/2023 10:21 AM CDT [facility] PLATELET COUNT 284 140 - 440 thou/cu mm 08/12/2023 10:21 AM CDT [facility] MPV 10.0 6.5 - 11.0 fL 08/12/2023 10:21 AM CDT [facility] Blood BLOOD SPECIMEN / Unknown Venipuncture / Unknown 08/12/2023 9:23 AM CDT 08/12/2023 9:23 AM CDT Ranjit Funes MD HEMATOLOGY [facility] [address] [place] [address], [place] [phone] * HEMOGLOBIN A1C SCREENING (08/12/2023 9:23 AM CDT) Pathologist [facility] HEMOGLOBIN A1C SCREENING 5.5 <=6.4 % 08/12/2023 4:57 PM CDT [facility] Blood BLOOD SPECIMEN / Unknown Venipuncture / Unknown 08/12/2023 9:23 AM CDT 08/12/2023 9:23 AM CDT [facility] LABORATORY - 08/12/2023 4:57 PM CDT ? (<5.7%) ?Normal ? (5.7% to 6.4%) ? Indicates prediabetes ? (>=6.5%) ? Confirms diabetes Falsely low levels may be seen with: Recent Transfusion, Recent Significant Blood Loss, Hemolytic Diseases, or Falsely elevated levels may be seen with: Untreated Anemias, Splenectomy Ranjit Funes MD CHEMISTRY [facility] [address] [place] [address], * (ABNORMAL) RED CELL MORPHOLOGY (08/12/2023 9:23 AM CDT) [facility] ELLIPTOCYTES Many 08/12/2023 10:21 AM CDT [facility] POLYCHROMASIA Slight 08/12/2023 10:21 AM CDT [facility] SPHEROCYTES Few 08/12/2023 10:21 AM CDT [facility] TARGET CELLS Few 08/12/2023 10:21 AM CDT [facility] TEARDROP CELLS Moderate 08/12/2023 10:21 AM CDT [facility] RBC COMMENT Present(A) RBC morphology appears normal, RBC morphology within normal limits for newborns. 08/12/2023 10:21 AM CDT [facility] Blood BLOOD SPECIMEN / Unknown Venipuncture / Unknown 08/12/2023 9:23 AM CDT 08/12/2023 9:23 AM CDT Ranjit Funes MD HEMATOLOGY [facility] [address] [place] [address], * PLATELET ESTIMATE (08/12/2023 9:23 AM CDT) PLATELET ESTIMATE Adequate Adequate, No estimate 08/12/2023 10:21 AM CDT [facility] Blood BLOOD SPECIMEN / Unknown Venipuncture / Unknown 08/12/2023 9:23 AM CDT 08/12/2023 9:23 AM CDT Ranjit Funes MD HEMATOLOGY Performing Organization Address City/[facility]/ZIP Co de Phone Number [facility] [address] [place] [address], [place] [phone] * (ABNORMAL) LIPID PANEL W REFLEX MEASURED LDL (08/12/2023 9:23 AM CDT) CHOLESTEROL,TOTAL 220(H) 100 - 199 mg/dL 08/12/2023 6:18 PM CDT [facility] LABORAT[facility] TRAL LABORATORY Comment: Cholesterol, Total Reference Ranges Desirable <200 mg/dL Borderline 200-239 mg/dL High >=240 mg/dL TRIGLYCERIDES 64 <150 mg/dL 08/12/2023 6:18 PM CDT [facility] HDL CHOLESTEROL 108 >40 mg/dL 6:18 PM CDT [facility] NON-HDL CHOLESTEROL 112 <145 mg/dl 08/12/2023 6:18 PM CDT [facility] CHOL/HDL RATIO 2.04 <4.50 08/12/2023 6:18 PM CDT [facility] LABOR[facility] TRAL LABORATORY LDL CHOLESTEROL 99 <=130 mg/dL 08/12/2023 6:18 PM CDT [facility] [facility] VLDL CHOLESTEROL 13 <=30 mg/dL 08/12/2023 6:18 PM CDT [facility] TRAL LABORATORY PROVIDER ORDERED STATUS RANDOM 08/12/2023 6:18 PM CDT [facility] LAB[facility] TRAL LABORATORY Blood BLOOD SPECIMEN / Unknown Venipuncture / Unknown 08/12/2023 9:23 AM CDT 08/12/2023 9:23 AM CDT Ranjit Funes MD CHEMISTRY [facility] LABORATORY-CEN[facility]AL LABORATORY [address] [place] [address], * MANUAL DIFFERENTIAL (08/12/2023 9:23 AM CDT) % NEUTROPHILS 61.0 % 08/12/2023 10:21 AM CDT [facility] % LYMPHOCYTES 31.0 % 08/12/2023 10:21 AM CDT [facility] % MONOCYTES 6.0 % 08/12/2023 10:21 AM CDT [facility] % EOSINOPHILS 0.0 % 08/12/2023 10:21 AM CDT [facility] % BASOPHILS 2.0 % 08/12/2023 10:21 AM CDT [facility] NEUTROPHILS ABSOLUTE 3.6 1.7 - 7.0 thou/cu mm 08/12/2023 10:21 AM CDT [facility] LYMPHOCYTES ABSOLUTE 1.8 0.9 - 2.9 thou/cu mm 08/12/2023 10:21 AM CDT [facility] MONOCYTES ABSOLUTE 0.4 <0.9 thou/cu mm 08/12/2023 10:21 AM CDT [facility] EOSINOPHILS ABSOLUTE 0.0 <0.5 thou/cu mm 08/12/2023 10:21 AM CDT [facility] BASOPHILS ABSOLUTE 0.1 <0.3 thou/cu mm 08/12/2023 10:21 AM CDT [facility] Blood BLOOD SPECIMEN / Unknown Venipuncture / Unknown 08/12/2023 9:23 AM CDT 08/12/2023 9:23 AM CDT Ranjit Funes MD HEMATOLOGY [facility] [address] [place] [address], * COLONOSCOPY (01/15/2016 11:18 AM CDT) 01/15/2016 [...] candidate for conscious sedation. ? The PCF-Q290AL [id number] was passed through the anus and advanced [...] adequate candidate for conscious sedation. The PCF-Q290AL [id number] was passed through the anus and advanced [...] Documents on File Type Date Recorded Patient Circuit Judge Expl anation Healthcare Directive 04/17/2016 12:10 PM Gayle ESTRELLA, 12/22/2015 Healthcare Directive 05/17/2015 3:42 PM DONELL ESTRELLA, 04/29/15 ONLY ONE PAGE DOCUMENT RECEIVED Care Teams Billboard Poster Relationship Specialty Start Date End Date [place] [address] PCP - General 07/05/07
[2023-10-18 03:25] VITALS: BP 125/74; PULSE 75; RESP 20; TEMP 36.8; O2SAT 99
[2023-10-18 03:26] VITALS: BP 125/74; PULSE 75; RESP 20; TEMP 36.8; O2SAT 99
== END 2023-10-18 03:22 | disposition home or self-care (01) ==
PROVIDERS: PCP Family Medicine; Visit Provider Family Medicine
DX: Z20.3 Contact with and (suspected) exposure to rabies (principal); Z23 Encounter for immunization
CPT/HCPCS: 80307; 90471; 90675